=== PATIENT | female | born 1945 | race Caucasian/White ===

== ENCOUNTER 2023-04-13 06:40 | Inpatient (IN) | payer OTHER, SELFPAY ==
[2023-04-13] VITALS (10 sets, daily range): BP systolic 116–159; BP diastolic 63–93; BMI 38.3; BMI 37.3
[2023-04-13 00:39] LABS: % Basophils 0.6 % (0-2); % Eosinophils 1.9 % (0-6); % Immature Granulocytes 0.2 % (0-0.5); % Lymphocytes 22.9 % (20.5-51.1); % Monocytes 12.4 % (1.7-9.3); Absolute Basophils 0.1 10^3/uL (0-0.2); Absolute Eosinophils 0.2 10^3/uL (0-0.7); Absolute Lymphocytes 2.2 10^3/uL (1.2-3.4); Absolute Monocytes 1.2 10^3/uL (0.1-0.6); Absolute Neutrophils 5.9 10^3/uL (1.4-6.5); Hematocrit 35.4 % (37.0-47.0); Mean Corp Hgb Conc. 33.9 g/dL (33.0-37.0); Mean Corpuscular Hgb 32.7 pg (27.0-31.0); Mean Corpuscular Volume 96.5 fL (81.0-99.0); Mean Platelet Volume 9.8 fL (7.4-10.4); Nucleated Red Blood Cells % 0 %; Platelet Count 279 10^3/uL (130-400); Red Blood Cell Count 3.67 10^6/uL (4.20-5.40); Red Cell Dist. Width 13.1 % (11.5-14.5); White Blood Cell Count 9.6 10^3/uL (4.8-10.8)
--- NOTE | 2023-04-13 00:51 | ED.GENMED ---
History of Present Illness
<MARSHALL Hector - Last Filed: 04/13/23 04:50>
General
Chief Complaint: Chest Pain
Source: patient
Exam Limitations: none
Time Seen by Provider: 04/13/23 00:51
Nursing documentation reviewed up to this point in time: agreed with
Travel History
Have you had any contact with someone who has COVID-19?: No
Do you have any symptoms of coronavirus? Fever > 100 degrees, chills, cough, shortness of breath, sore throat, loss of taste or smell, muscle aches, or headache?: No
History of Present Illness
History of Present Illness:
This is a 77 YOF with PMHx of Afib, HTN, HLD, myxoma, spinal stenosis presenting with 7/10 chest tightness and SOB that began around 2300. Pt mentioned she went to bed without complaint around 2130 last night and woke around 2300 with SOB. Pt
mentioned one brief episode SOB 3 days ago in the evening that fully resolved. Pt denied any other past Hx of SOB. Pt mentioned intermittent cough with yellow mucus production. Pt denied fever, chills, chest pain, rhinorrhea, N/V/D/C, MSK weakness,
YU, dizziness, near syncope, vision changes, sensory changes. Pt has Hx of smoking, but has quit for 35 yrs. Pt mentioned taking Percocet BID for spinal stenosis pain. Allergies to PCN, vancomycin.
Past History
<MARSHALL Hector - Last Filed: 04/13/23 04:50>
Past History
ED Past Medical History: Arrthythmia (Paroxysmal atrial fibrillation), Hypercholesterolemia, Hypothyroidism and Other (Crohn's disease colostomy in 1981 with total colectomy, thyroidectomy)
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
Social History
Tobacco: Former smoker (Quit cigarettes in 1988)
Alcohol: None
Drug: None
Personal:
Living: with family
Employment: Retired
Family History
Family History: Other (Noncontributory)
Review of Systems
<MARSHALL Hector - Last Filed: 04/13/23 04:50>
Review of Systems
Allergies reviewed?: Yes
All Other Systems: ROS reviewed and negative except as documented in HPI and ROS
Constitutional: Reports no symptoms
EENT: Reports no symptoms
Respiratory: Reports cough and trouble breathing
Cardiac: Reports no symptoms
ABD/GI: Reports no symptoms
: Reports no symptoms
Musculoskeletal: Reports no symptoms
Skin: Reports no symptoms
Neurological: Reports no symptoms
Hematologic/Lymphatic: Reports no symptoms
Psychiatric: Reports no symptoms
Phy Exam
<MARSHALL Hector - Last Filed: 04/13/23 04:50>
General Physical Exam
General Presentation: mild distress
General age: appears stated age
General Skin: warm and dry
General Habitus: normal
General Mental: alert
General Hydration: appears well hydrated
ENT Exam
ENT Exam: EOMI
Eye Exam
Eye Exam: PERRL and EOMI
Cardiovascular Exam
Cardiovascular Exam: regular rate/rhythm, no edema, no gallop, no JVD, no murmur and normal peripheral pulses
Pulmonary Exam
Pulmonary Exam: lungs clear, no respiratory distress, no rales, no crackles, no rhonchi, no stridor and no wheezing
Cough: productive cough (yellow mucus production)
Gastrointestinal Exam
Gastrointestinal Exam: normal bowel sounds, non tender, soft, no pulsatile mass, non distended and no masses
External Findings: colostomy
Neurological Exam
Neurological Exam: alert, oriented x3, no motor deficits, no sensory deficits and speech normal
Musculoskeletal Exam
Musculoskeletal Exam: neuro vasc intact
Skin Exam
Skin Exam: normal color and warm/dry
Psychiatric Exam
Psychiatric Exam: normal mood/affect
Scores
<MARSHALL Hector - Last Filed: 04/13/23 04:50>
Heart Score for Chest Pain Patients
STEMI patient?: No
History: Moderately Suspicious
ECG: Normal
Age: >/= 65 years
Risk Factors: 1 or 2 Risk Factors
Troponin: </= Normal Limit
Heart Score for Chest Pain Patients: 4
Heart Score Risk: 20.3% MACE over next 6 weeks
Course
<MARSHALL Hector - Last Filed: 04/13/23 04:50>
Orders/Labs/Results
Orders:
Orders
04/13/23 00:17
Electrocardiogram (*1) Urgent
Reason for Study: QTc Monitoring
EKG- Treatment ONCE
04/13/23 00:23
Complete Blood Count/With Diff Urgent
Comprehensive Metabolic Panel Urgent
Troponin I Urgent
04/13/23 01:30
Add On- LAB Urgent
Tests Added?: BNP
04/13/23 01:31
CR Chest - 2 Views Urgent
Comment:
Reason For Exam: cp, sob
04/13/23 01:43
US Abdomen Complete/Upper Urgent
Comment:
Reason For Exam: acute RUQ-epigastric pain
04/13/23 01:44
Mag Hydrox/Al Hydrox/Simeth [Maalox] 30 ml Phenobarb/Hyoscy/Atropine/Scop [] 10 ml Viscous Lidocaine 2% [Xylocaine Viscous Cup] 10 ml PO NOW
Pantoprazole [Protonix IV] 40 mg IV NOW STA
04/13/23 02:07
Mag Hydrox/Al Hydrox/Simeth [Maalox] 30 ml .ROUTE .STK-MED ONE
Phenobarb/Hyoscy/Atropine/Scop [] 10 ml .ROUTE .STK-MED ONE
04/13/23 02:08
Viscous Lidocaine 2% [Xylocaine Viscous Cup] 15 ml .ROUTE .STK-MED ONE
04/13/23 03:03
NT-proBNP Urgent
Comment: ADD ON
Troponin I Urgent
04/13/23 04:11
Add On- LAB Urgent
Tests Added?: lipase
04/13/23 04:31
CefoTEtan [Cefotan] 2,000 mg IV NOW STA
Abnormal Lab Results
04/13/23
00:23
RBC 3.67 L 10^6/uL
(4.20-5.40)
Hct 35.4 L %
(37.0-47.0)
MCH 32.7 H pg
(27.0-31.0)
Absolute Monos (auto) 1.2 H 10^3/uL
(0.1-0.6)
Monocytes % 12.4 H %
(1.7-9.3)
BUN 31 H mg/dl
(7-17)
Alkaline Phosphatase 141 H U/L
(38-126)
04/13/23 00:23
04/13/23 00:23
Vital Signs
Initial and Last Documented VS:
Initial Vital Signs
Temp Pulse Resp BP Pulse Ox
98.2 F 78 17 159/90 96
04/13/23 00:19 04/13/23 00:19 04/13/23 00:19 04/13/23 00:19 04/13/23 00:19
Last Documented Vital Signs
Temp Pulse Resp BP Pulse Ox
98.2 F 77 16 141/93 90
04/13/23 00:19 04/13/23 03:00 04/13/23 03:00 04/13/23 02:16 04/13/23 03:00
<Bri Neves, DO - Last Filed: 04/13/23 04:31>
Orders/Labs/Results
Orders:
Orders
04/13/23 00:17
Electrocardiogram (*1) Urgent
Reason for Study: QTc Monitoring
EKG- Treatment ONCE
04/13/23 00:23
Complete Blood Count/With Diff Urgent
Comprehensive Metabolic Panel Urgent
Troponin I Urgent
04/13/23 01:30
Add On- LAB Urgent
Tests Added?: BNP
04/13/23 01:31
CR Chest - 2 Views Urgent
Comment:
Reason For Exam: cp, sob
04/13/23 01:43
US Abdomen Complete/Upper Urgent
Comment:
Reason For Exam: acute RUQ-epigastric pain
04/13/23 01:44
Mag Hydrox/Al Hydrox/Simeth [Maalox] 30 ml Phenobarb/Hyoscy/Atropine/Scop [] 10 ml Viscous Lidocaine 2% [Xylocaine Viscous Cup] 10 ml PO NOW
Pantoprazole [Protonix IV] 40 mg IV NOW STA
04/13/23 02:07
Mag Hydrox/Al Hydrox/Simeth [Maalox] 30 ml .ROUTE .STK-MED ONE
Phenobarb/Hyoscy/Atropine/Scop [] 10 ml .ROUTE .STK-MED ONE
04/13/23 02:08
Viscous Lidocaine 2% [Xylocaine Viscous Cup] 15 ml .ROUTE .STK-MED ONE
04/13/23 03:03
NT-proBNP Urgent
Comment: ADD ON
Troponin I Urgent
04/13/23 04:11
Add On- LAB Urgent
Tests Added?: lipase
04/13/23 04:31
CefoTEtan [Cefotan] 2,000 mg IV NOW STA
Abnormal Lab Results
04/13/23
00:23
RBC 3.67 L 10^6/uL
(4.20-5.40)
Hct 35.4 L %
(37.0-47.0)
MCH 32.7 H pg
(27.0-31.0)
Absolute Monos (auto) 1.2 H 10^3/uL
(0.1-0.6)
Monocytes % 12.4 H %
(1.7-9.3)
BUN 31 H mg/dl
(7-17)
Alkaline Phosphatase 141 H U/L
(38-126)
04/13/23 00:23
04/13/23 00:23
Vital Signs
Initial and Last Documented VS:
Initial Vital Signs
Temp Pulse Resp BP Pulse Ox
98.2 F 78 17 159/90 96
04/13/23 00:19 04/13/23 00:19 04/13/23 00:19 04/13/23 00:19 04/13/23 00:19
Last Documented Vital Signs
Temp Pulse Resp BP Pulse Ox
98.2 F 77 16 141/93 90
04/13/23 00:19 04/13/23 03:00 04/13/23 03:00 04/13/23 02:16 04/13/23 03:00
<MARSHALL Hector - Last Filed: 04/13/23 04:50>
MDM/Problems Addressed
Differential Diagnosis Includes:
ACS, PE, PNA, COPD exacerbation, CHF exacerbation
MDM/Problems Addressed:
77 YOF presenting with SOB
Chronic conditions affecting care: Arrhythmia (Afib)
Acute Exacerbation and/or Progression of Chronic Illness: Arrhythmia (Afib)
<MARSHALL Hector - Last Filed: 04/13/23 04:50>
*Pulse Oximetry
Patient hypoxic: no
*EKG
Interpreted by ED Provider?: Yes
Interpretation: abnormal
Comparison EKG: changes noted
Rate: normal
Rhythm: atrial flutter
[place]: normal axis
Interval: normal interval
QRS Pattern: normal QRS
Ischemia: no ischemia
*Strapper And Buffer Interpretation
Rate: normal
Interpretation: normal
Rhythm: atrial flutter
*Critical Care Note
Total Time (30-74mins, 75-104mins- exclusive of procedures): Not Applicable
<Bri Neves DO - Last Filed: 04/13/23 04:31>
*Radiology
Radiology exam reviewed: preliminary read by ED provider (Chest x-ray shows soft tissue attenuation left upper breast overlying left lung field. ) and radiology read reviewed
ED Attending Note
<MARSHALL Hector - Last Filed: 04/13/23 04:50>
-
Portions of this chart may have been created with voice recognition software.� Occasional wrong word or��sound alike� substitutions may have occurred due to the inherent limitations of voice recognition software.
<Bri Neves DO - Last Filed: 04/13/23 04:31>
ED Attending Note
Patient seen and examined by attending physician: Yes
I performed the substantive portion of visit, reviewed & personally made and approve the management plan that is documented in note by myself or JATIN.: Yes
I performed a history and physical exam of patient and discussed management with resident, I reviewed resident's note and agree with documented findings and plan of care.: Yes
ED Attending Note:
As above, 77-year-old woman who resides at home with her . History of A-fib chronically maintained on Eliquis and metoprolol. History of hyperlipidemia, hypertension. 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 She
has no prior history of CAD. She does have history of Crohn's disease, colectomy with colostomy.
She presents with right-sided chest tightness that is worse with deep breath that woke her from sleep around 11 PM tonight. Chest tightness is central and right upper chest, worse with deep breath with a sense that she is unable to take a full deep
breath but otherwise denies shortness of breath. She denies palpitations, no dizziness nor lightheadedness, no nausea, no diaphoresis, no cough. She had similar episode of right-sided chest discomfort waking her from sleep 3 nights ago which
resolved within 30 to 60 minutes. Tonight pain has not resolved. She did take 4 chewable aspirin prior to EMS arrival and was given 1 sublingual nitroglycerin prehospital without improvement in pain.
GENERAL: 77-year-old woman appears her stated age, bright and alert, pleasant, appears in no acute distress. is accompanying.
EYE: anicteric
NECK: Supple, nontender, no meningismus, no significant adenopathy.
ENT: oral mucosa is moist. No rhinorrhea.
CARDIAC: Regular rate and rhythm. no murmur.
LUNGS: Clear breath sounds bilaterally, no acute respiratory distress, no wheezes/rales/rhonchi
ABDOMEN: Soft, nondistended, mild to moderate tenderness right upper quadrant right anterior distal costal margin. No r/g, no cvat. normoactive BS.
NEUROLOGICAL: Alert and oriented x3, no focal neuro deficits.
SKIN: Warm and dry, normal color, skin intact. No rash.
MUSCULOSKELETAL: No C/C/E. peripheral pulses are full and equal b/l. No palpable tenderness.
PSYCH: Normal and appropriate interaction.
Concern for ACS, pneumonia, GERD, cholecystitis, CHF.
EKG shows atrial flutter with controlled ventricular response. No acute ST-T wave abnormalities.
Labs thus far are unremarkable save for mildly elevated alkaline phosphatase at 141. LFTs are otherwise within normal limits. Troponin is negative.
Will check BNP, chest x-ray and due to right upper quadrant tenderness to palpation will check abdominal ultrasound.
Will plan to repeat troponin at 230 this morning.
Will trial GI cocktail and IV Protonix for potential GERD.
04/13/2023 0414 AM
Repeat troponin is again negative.
Chest x-ray shows soft tissue attenuation over left chest field consistent with soft tissue attenuation of left breast.
Ultrasound shows common bile duct dilated up to 13 mm with choledocholithiasis. Contracted gallbladder containing small granular gallstones in its neck. No gallbladder wall thickening nor pericholecystic fluid. No intrahepatic ductal dilatation.
Patient is now pain-free and comfortable but I suspect her right-sided chest pain is related to biliary colic and although T. bili within normal limits, with dilated common bile duct there is significant concern for early common bile duct
obstruction.
BNP is pending but there is no evidence of CHF on chest x-ray.
Will add lipase to blood in lab.
Will initiate IV antibiotics for potential cholecystitis and admit to hospitalist service.
Discharge Plan
Departure
Patient Disposition: Admit
Date of Disposition: 04/13/23
Time of Disposition: 04:14
Admit to: Med/Surg
Admit to doctor: Brodie
Presentation/result/management discussed w/ accepting MD/DO: Hospitalist
Discharge Problem:
Choledocholithiasis with acute cholecystitis
Prescriptions:
No Action
levothyroxine 150 MCG tablet
150 mcg PO DAILY
multivitamin [Multi-Day] 1 EACH tablet
1 tab PO DAILY
aspirin 81 MG tablet,delayed release (DR/EC)
81 mg PO DAILY
fluticasone propionate 1 SPRAY spray,suspension
1 spray SPRAY DAILY
atorvastatin 10 MG tablet
10 mg PO HS Qty: 30 3RF
cetirizine 10 MG tablet
10 mg PO DAILY
famotidine 20 MG tablet
20 mg PO Daily
apixaban [Eliquis] 5 MG tablet
5 mg PO BID Qty: 60 0RF
metoprolol succinate 25 MG tablet extended release 24 hr
25 mg PO DAILY Qty: 30 1RF
promethazine-DM 473 ML syrup
5 - 10 ml PO QIDPRN PRN (Reason: cough) Qty: 473 0RF
tramadol 50 MG tablet
50 mg PO TIDPRN PRN (Reason: pain) Qty: 12 0RF
Referrals:
Jairo Lopez MD [Family Provider] -
Interventions
Interventions:
*Risk Screen - Suicide Last Done: 04/13/23 00:36
*General Assessment Last Done: 04/13/23 00:36
*Neglect/Abuse Screening Last Done: 04/13/23 00:36
ED- Fall Risk Assessment Last Done: 04/13/23 00:30
*ED COVID-19 Vaccine History Last Done: 04/13/23 03:04
ED- Cardiac Assessment Last Done: 04/13/23 00:30
[2023-04-13 00:53] LABS: ALT (SGPT) 19 U/L (0-35); AST (SGOT) 23 U/L (14-36); Albumin 3.9 g/dl (3.5-5.0); Alkaline Phosphatase 141 U/L (38-126); Blood Urea Nitrogen 31 mg/dl (7-17); Calcium 8.8 mg/dl (8.4-10.2); Carbon Dioxide 24 mmol/L (22-30); Estimated Creatinine Clearance 65 ml/min; Glucose 96 mg/dl (70-99); Total Bilirubin 0.6 mg/dl (0.2-1.3); Total Protein 6.3 g/dl (6.3-8.2); eGFR > 60.00
[2023-04-13 01:02] LABS: Chloride 106 mmol/L (98-107); Potassium 4.4 mmol/L (3.5-5.1); Sodium 136 mmol/L (135-145)
[2023-04-13 01:04] LABS: Troponin I < 0.012 ng/ml
[2023-04-13] MEDS: PROTONIX IV 40 MG IV (02:10)
[2023-04-13] MEDS: MAALOX 50 PO (02:10)
[2023-04-13 03:39] LABS: Troponin I < 0.012 ng/ml
[2023-04-13 04:15] LABS: NT-proBNP 818 pg/ml
[2023-04-13] MEDS: CEFOTAN 2000 MG IV (04:48)
[2023-04-13 05:18] LABS: Lipase 101 U/L (23-300)
--- NOTE | 2023-04-13 06:32 | HPS.HSE ---
Family Physician
-
Family Physician: Jairo Lopez
Chief Complaint
-
SOB
History of Present Illness
Patient is a 77y F with PMH significant for Crohn's disease s/p total colectomy, paroxysmal A-Fib and breast cancer who presents to ED complaining of SOB. Patient states that she has had brief episodes of chest heaviness, SOB and inability to
take in a deep breath off-and-on over the past few weeks. Episodes have typically occurred at night while turning in bed or similar and have typically lasted only seconds before resolving.
This evening, patient developed similar symptoms that were much more intense and did not resolve. She denies any pain - either in the chest, abdomen or the back. She had no N/V at home, but does complain of some mild nausea here in the ED.
Patient denies any issues with appetite, changes in bowels, etc. No fevers / chills.
No recent changes to medications, diet, etc.
Medical History
Past Medical History
Past Medical History: Reports Other
Additional Past Medical History:
Paroxysmal Atrial Fibrillation
Left Atrial Myxoma
Hypertension
Crohn's Disease
Breast Cancer (lumpectomy and XRT)
Hypothyroidism
Obesity
Past Surgical History: Reports Other
Additional Past Surgical History:
Total Colectomy / End Colostomy
Parastomal Hernia / Repair with Mesh (x 2)
Atrial Myxoma Resection
Thyroidectomy
Lumpectomy
Social History
Tobacco: Former Smoker (Quit smoking 35y ago. Approx 20 pack years total use.)
Alcohol: Occasional (Rarely.)
Drug: None
Personal:
Living: With Family
Family History
Family History: Other (Multiple female family members with breast cancer.)
Allergies / Home Medications
Allergies reflects when Allergies were last updated in [employer].
Home Medications with original date entered in [employer]
Allergy/Medication List:
Allergies
Allergy/AdvReac Type Severity Reaction Status Date / Time
Penicillins Allergy Intermediate Rash Verified 10/12/19 02:55
vancomycin Allergy Unknown Verified 10/12/19 02:55
Home Medications
levothyroxine 150 mcg tablet 150 mcg PO DAILY 08/07/15
fluticasone propionate 50 mcg/actuation nasal spray,suspension 1 spray SPRAY DAILY 08/26/15
multivitamin (Multi-Day tablet) 1 tab PO DAILY 08/26/15
atorvastatin 10 mg tablet 10 mg PO HS ##30 09/07/15
apixaban 5 mg tablet (Eliquis) 5 mg PO BID #60 tabs 03/03/18
anastrozole 1 mg tablet 1 mg PO DAILY 04/13/23
celecoxib 200 mg capsule 200 mg PO BID 04/13/23
esomeprazole magnesium 20 mg capsule,delayed release 20 mg PO BID 04/13/23
levocetirizine 5 mg tablet (Xyzal) 5 mg PO DAILY 04/13/23
metoprolol succinate 25 mg tablet,extended release 24 hr 25 mg PO HS 04/13/23
metoprolol succinate 25 mg tablet,extended release 24 hr 50 mg PO DAILY 04/13/23
Review of Systems
-
History Source: Patient
A 12 point ROS was completed and negative except as noted: Yes
Constitutional: Denies Fever, Fatigue or Chills
EENT: Denies Sore Throat
Respiratory: Reports Trouble Breathing; Denies Cough or Hemoptysis
Cardiac: Denies Chest Pain, Diaphoresis, Palpitations or Syncope
Abdomen/GI: Reports Nausea; Denies Abdominal Pain, Vomiting, Diarrhea or Constipated
: Denies Dysuria, Frequency or Flank Pain
Musculoskeletal: Denies Joint Pain or Edema
Neurological: Denies Dizzy or Headache
Psych: Reports Anxiety
Physical Exam
Vital Signs
Vital Signs
Temp Pulse Resp BP Pulse Ox
98.2 F 77 15 116/63 92
04/13/23 00:19 04/13/23 05:00 04/13/23 05:00 04/13/23 03:00 04/13/23 05:00
Physical Exam
General: Other (77y F in no acute distress.)
HEENT: Moist mucous membranes and PERRLA
Respiratory: Clear; No Wheezes, Rales or Rhonchi
Cardiac: S1/S2, Irregular Rhythm and Murmur (II/ GRABIEL)
GI: Soft, Non Distended, Normal Bowel Sounds and Other (Obese, pos tenderness in the RUQ.)
Musculoskeletal: No Clubbing, No Cyanosis and No Edema
Neuro: AO x 3
Laboratory Results
-
04/13/23 00:23
04/13/23 00:23
Laboratory Results
Total Bilirubin 0.6 mg/dl (0.2-1.3) 04/13/23 00:23
AST 23 U/L (14-36) 04/13/23 00:23
ALT 19 U/L (0-35) 04/13/23 00:23
Alkaline Phosphatase 141 U/L (38-126) H 04/13/23 00:23
Troponin I < 0.012 ng/ml 04/13/23 03:03
Lipase 101 U/L (23-300) 04/13/23 00:23
Impression/Plan
-
A/P: Patient is a 77y F with PMH significant for multiple prior abdominal surgeries, end ileostomy, A-Fib and HTN who presents to ED complaining of SOB.
Choledocholithiasis
- Admit for further evaluation and treatment.
- Though patient denies pain - her symptom of inability to take deep breath is likely due to the above.
- NPO, IVFs support, pain control and antiemetics.
- GI and Surgery evaluations.
- ? MRCP v ERCP.
- Patient states that she would require sedation in order to complete MRI / MRCP.
- No evidence of acute cholecystitis / cholangitis.
- Follow for any new / recurrent symptoms.
Paroxysmal Atrial Fibrillation
- Stable. In controlled A-Fib at present.
- Continue metoprolol.
- Hold Eliquis for now pending possible intervention.
- Last dose of Eliquis was 04/12 PM.
Hypothyroidism
- Stable. Continue T4 supplementation.
Crohn's Disease
- s/p total colectomy / end-ileostomy in her youth.
- Two parastomal hernias in the past requiring surgery / hernia repair(s) with mesh.
- Stoma functioning well.
Breast Cancer
- s/p lumpectomy and XRT.
- Continue anastrazole daily.
Obesity due to excess calories
- Affects all aspects of care.
- Encourage healthy diet / activity with goal of weight loss.
DVT Prophylaxis: SCDs
Code Status: Full
[2023-04-13] MEDS: TOPROL XL 50 MG PO (07:58)
[2023-04-13] MEDS: LR 1000 IV ×2 (07:58→22:07)
[2023-04-13] MEDS: ARIMIDEX 1 MG PO (08:19)
[2023-04-13] MEDS: SYNTHROID PO (08:29)
[2023-04-13 09:10] LABS: TSH Reflex To Free T4 0.51 uIU/ml (0.47-4.68)
--- NOTE | 2023-04-13 10:14 | CON.GS ---
Medical History
-
Chief Complaint: Upper abdominal pressure and SOB
History of Present Illness:
Patient is a 77 yo F with a PMH notable for obesity, GERD, HTN, pA-fib (on Eliquis, LD 04/12), LEFT atrial myxoma s/p resection by Dr. Giron in 2015, s/p total thyroidectomy c/b hypothyroidism, breast cancer s/p partial mastectomy and XRT, Crohn's
s/p proctectomy with colostomy c/b parastomal hernia s/p primary repair in 07/2015 c/b recurrence and s/p laparoscopic [place] repair with 10 x 15 [place] DualMesh in 12/[address] Brenner. She presents with intermittent upper abdominal pressure
and SOB over the past 2 weeks. Symptoms have occurred every few days and primarily occur at night. Symptoms last seconds before self resolving. Yesterday evening she had a severe episode prompting presentation to the ED. No nausea or vomiting.
She denies any jaundice, pale stools, articulate urine. No fevers or chills.
Past Medical History
Past Medical History: Arrhythmias (Afib (on Eliquis)), Cancer (Breast, L atrial myxoma), GERD, HTN, Hypercholesterolemia, Hypothyroidism and Other (Crohn's)
Past Surgical History: Bowel Resection (Open proctectomy with end colostomy c/b parastomal hernia), Cardiac (Excision of LEFT atrial mass) and Hernia Repair (Open primary parastomal hernia repair in 07/2015 c/b recurrence s/p laparoscopic repair with
mesh in 12/2015)
Social History
Tobacco: Non-Smoker
Alcohol: None
Drug: None
Personal:
Living: With Family
Family History
Family History: Reviewed & Noncontributory
Allergies / Home Medications
Allergy/AdvReac Type Severity Reaction Status Date / Time
Penicillins Allergy Rash Verified 04/13/23 07:08
vancomycin Allergy Unknown Verified 10/12/19 02:55
Medication Instructions Recorded Confirmed Type
levothyroxine 150 mcg tablet 150 mcg PO DAILY 08/07/15 04/13/23 History
fluticasone propionate 50 1 spray SPRAY DAILY 08/26/15 04/13/23 History
mcg/actuation nasal
spray,suspension
multivitamin (Multi-Day tablet) 1 tab PO DAILY 08/26/15 04/13/23 History
atorvastatin 10 mg tablet 10 mg PO HS ##30 09/07/15 04/13/23 Rx
apixaban 5 mg tablet (Eliquis) 5 mg PO BID #60 tabs 03/03/18 04/13/23 Rx
anastrozole 1 mg tablet 1 mg PO DAILY 04/13/23 04/13/23 History
celecoxib 200 mg capsule 200 mg PO BID 04/13/23 04/13/23 History
esomeprazole magnesium 20 mg 20 mg PO BID 04/13/23 04/13/23 History
capsule,delayed release
levocetirizine 5 mg tablet (Xyzal) 5 mg PO DAILY 04/13/23 04/13/23 History
metoprolol succinate 25 mg 25 mg PO HS 04/13/23 04/13/23 History
tablet,extended release 24 hr
metoprolol succinate 25 mg 50 mg PO DAILY 04/13/23 04/13/23 History
tablet,extended release 24 hr
Review of Systems
-
A 10 point review of systems was completed, and was negative except as per HPI.
Physical Exam
Vital Signs
Temp Pulse Resp BP Pulse Ox
98.2 F 78 17 150/82 96
04/13/23 00:19 04/13/23 05:28 04/13/23 05:28 04/13/23 08:17 04/13/23 08:17
04/12/23 04/13/23 04/14/23
06:59 06:59 06:59
Actual Weight 98 kg
Body Mass Index (BMI) 38.3
Lab Results
04/13/23 00:23
04/13/23 00:23
WBC 9.6 10^3/uL (4.8-10.8) 04/13/23 00:
Hgb 12.0 g/dL (12.0-16.0) 04/13/23:
Hct 35.4 % (37.0-47.0) L 04/13/23:23
Plt Count 279 10^3/uL (130-400) 04/13/23:
Abs Immat Gran (auto) 0.0 10^3/uL (0-0.05) 04/13/23:
Neutrophils % 62.0 % (42.2-75.2) 04/13/23:
Physical Exam
General: Well Developed, Well Nourished and No Apparent Distress
HEENT: Normocephalic and Anicteric
Respiratory: Non Labored Respirations
Cardiac: Irregular Rhythm
GI: Soft, Non Tender, Non Distended, Incisions (Well healed), Obese and Other (Colostomy PPV, no palpable hernia)
Musculoskeletal: No Edema
Skin: Warm and Dry
Neuro: Nonfocal/Grossly Intact
Data Reviewed
-
Ultrasound: Image Personally Visualized and interpreted
Labs: Labs Reviewed by me
Old Records: Reviewed
Assessment / Plan
-
Patient is a 77 yo F p/w biliary colic versus choledocholithiasis based on US findings (final read pending).
The natural history and pathophysiology of biliary and stone disease was briefly discussed. Anatomy was reviewed. Workup thus far was reviewed. Final read on US pending. GI consult noted and pending. Further workup with MRI versus EUS/ERCP per
GI. Not an operative candidate for cholecystectomy today given recent Eliquis use and above-noted pending workup. Will continue to follow along. Timing of cholecystectomy TBD.
-- Timing of cholecystectomy TBD
-- Hold Eliquis
-- GI consult noted, diet per GI at this time
-- Will continue to follow
--- NOTE | 2023-04-13 10:15 | CON.GI ---
Addendum entered and electronically signed by Alyssa Ma MD 04/13/23 20:11:
I saw and examined the patient.
The BAB[employer]ER or PA's note was reviewed and I agree with the note.
Comment: 77-year-old female with history of Crohn's disease of ? Large bowel status post total colectomy, history of incarcerated parastomal hernia and repair, breast cancer status postlumpectomy and radiation, A-fib on Eliquis presenting with
tightness in the right chest that woke her up from sleep early this morning and sensation of not able to breathe. Some nausea during the episode but not since. Came to the emergency room, noted to have elevated alkaline phosphatase and abdominal
ultrasound showing possible choledocholithiasis with dilated bile duct and mild dilation of the pancreatic duct. Currently no tightness or pain. History of chronic reflux on Nexium. No constipation or diarrhea, empties colostomy bag once a day.
No blood in the stool or black stool. No unintentional weight loss or NSAID use.
Last Eliquis dose 04/12/2023 in the evening.
-Right-sided chest tightness with elevated alkaline phosphatase and ultrasound showing choledocholithiasis
Given mild dilation of the pancreatic duct and dilated bile duct, ideally MRCP indicated but patient is very claustrophobic and does not want to try MRI even with tranquilizers.
Will discuss with Dr. Garcia for any availability for EUS/ERCP after Eliquis washout. Other option is doing ERCP and getting CT scan of the abdomen and pelvis to evaluate the pancreas and the pancreatic duct.
Okay for clear liquid diet for now.
Will follow-up
Eventual cholecystectomy
Original Note:
Consultation
-
Date/Time Consultation Requested: 04/13/23 @ 06:42
Date/Time Consultation Performed: 04/13/23 @ 10:30
Requesting Provider: Dr. Calloway
Performing Provider: SARAI Escobedo; Dr. Ma
Reason for Consultation: choledocholithiasis
Medical History
Chief Complaint / HPI
Chief Complaint: shortness of breath
History of Present Illness:
The patient is a 77-year-old female with a past medical history significant for Crohn's disease status post total colectomy off medications, paroxysmal atrial fibrillation on Eliquis, history of breast cancer status postlumpectomy and radiation,
atrial myxoma with resection, history of incarcerated parastomal hernia with repair x 2, hypertension, hypothyroidism, who presented to the emergency with complaint of shortness of breath. We are being asked to evaluate for choledocholithiasis.
The patient reports several weeks ago had an episode of chest pressure and shortness of breath. This lasted about 5 to 10 minutes but then did resolve on its own. She did not think anything of this at that time but last evening around 11 PM she
awoke from sleep with a pressure in her chest area. She also felt as though it was difficult to take a deep breath and felt that her breathing was somewhat labored. She was going to sit up on the couch but due to her concerning symptoms she
notified her who brought her to the emergency room for further evaluation. She reports some transient right-sided abdominal pain but overall no significant pain. She denies any changes to her ostomy output or signs of bleeding. She denies
any nausea, vomiting, fevers, or chills. She denies any prior history of liver or gallbladder problems. She denies any history of alcohol use. She denies NSAID use. Her last dose of Eliquis was yesterday evening (04/12). She denies any family
history of colon cancer or other GI cancers or disorders. Her last colonoscopy was done [address] Cantu via her ostomy which showed no concerning findings. Routine labs in the ER showed no significant findings aside from a mildly elevated
alk phos 141, BUN 31. A wet read of abdominal ultrasound imaging per ER records reported 13 mm CBD distention with choledocholithiasis. Official read pending at this time. She was made n.p.o. and admitted for further evaluation by GI and general
surgery. Her Eliquis was placed on hold.
Past Medical History
Past Medical History: Arrhythmias (Paroxysmal atrial fibrillation on Eliquis), Cancer (Breast cancer status postlumpectomy and radiation), HTN, Hypothyroidism and Other (Crohn's disease status post colectomy, history of incarcerated parastomal
hernia with repair x 2, atrial myxoma with resection)
Past Surgical History: Other (As above)
Social History
Tobacco: Non-Smoker
Alcohol: None
Drug: None
Personal:
Living: With Family
Family History
Family History: Cancer (breast cancer)
Allergies / Home Medications
Allergy/AdvReac Type Severity Reaction Status Date / Time
Penicillins Allergy Rash Verified 04/13/23 07:08
vancomycin Allergy Unknown Verified 10/12/19 02:55
Medication Instructions Recorded
levothyroxine 150 mcg tablet 150 mcg PO DAILY 08/07/15
fluticasone propionate 50 1 spray SPRAY DAILY 08/26/15
mcg/actuation nasal
spray,suspension
multivitamin (Multi-Day tablet) 1 tab PO DAILY 08/26/15
atorvastatin 10 mg tablet 10 mg PO HS ##30 09/07/15
apixaban 5 mg tablet (Eliquis) 5 mg PO BID #60 tabs 03/03/18
anastrozole 1 mg tablet 1 mg PO DAILY 04/13/23
celecoxib 200 mg capsule 200 mg PO BID 04/13/23
esomeprazole magnesium 20 mg 20 mg PO BID 04/13/23
capsule,delayed release
levocetirizine 5 mg tablet (Xyzal) 5 mg PO DAILY 04/13/23
metoprolol succinate 25 mg 25 mg PO HS 04/13/23
tablet,extended release 24 hr
metoprolol succinate 25 mg 50 mg PO DAILY 04/13/23
tablet,extended release 24 hr
Review of Systems
-
History Source: Patient
Constitutional: Reports No Symptoms
EENT: Reports No Symptoms
Respiratory: Reports Trouble Breathing
Cardiac: Reports Chest Pain
Abdomen/GI: Reports Abdominal Pain
: Reports No Symptoms
Musculoskeletal: Reports No Symptoms
Skin: Reports No Symptoms
Neurological: Reports No Symptoms
Vital Signs
Temp Pulse Resp BP Pulse Ox
98.2 F 78 17 150/82 96
04/13/23 00:19 04/13/23 05:28 04/13/23 05:28 04/13/23 08:17 04/13/23 08:17
Physical Exam
Exam
General: Well Developed, Well Nourished, No Apparent Distress and Comfortable
HEENT: Normocephalic, Anicteric and Atraumatic
Respiratory: Clear
Cardiac: S1/S2 and Irregular Rhythm
Breast: Deferred by me
GI: Soft, Non Tender, Non Distended and Normal Bowel Sounds
Musculoskeletal: No Edema
Skin: Warm and Dry
Neuro: Awake, Alert and Oriented
Psych: Calm
Results
WBC 9.6 10^3/uL (4.8-10.8) 04/13/23 00:23
Hgb 12.0 g/dL (12.0-16.0) 04/13/23 00:23
Hct 35.4 % (37.0-47.0) L 04/13/23 00:23
MCV 96.5 fL (81.0-99.0) 04/13/23 00:23
Plt Count 279 10^3/uL (130-400) 04/13/23 00:23
Absolute Neuts (auto) 5.9 10^3/uL (1.4-6.5) 04/13/23 00:23
Sodium 136 mmol/L (135-145) 04/13/23 00:23
Potassium 4.4 mmol/L (3.5-5.1) 04/13/23 00:23
Chloride 106 mmol/L (98-107) 04/13/23 00:23
Carbon Dioxide 24 mmol/L (22-30) 04/13/23 00:23
BUN 31 mg/dl (7-17) H 04/13/23 00:23
Creatinine 0.8 mg/dL (0.6-1.0) 04/13/23 00:23
Calcium 8.8 mg/dl (8.4-10.2) 04/13/23 00:23
Total Bilirubin 0.6 mg/dl (0.2-1.3) 04/13/23 00:23
AST 23 U/L (14-36) 04/13/23 00:23
ALT 19 U/L (0-35) 04/13/23 00:23
Alkaline Phosphatase 141 U/L (38-126) H 04/13/23 00:23
Lipase 101 U/L (23-300) 04/13/23 00:23
Diagnostic Image Results:
04/13/23 US abdomen: 'IMPRESSION: Cholelithiasis and findings as above most likely representing choledocholithiasis. Mild dilation of pancreatic duct and dilation of the common bile duct which may also be related to choledocholithiasis, distal ductal
stone not identified at sonography. Findings could be further evaluated with follow-up MRCP.'
Prior GI Procedures:
EGD: none on record
Colonoscopy: 2018 , Dr. Cantu: �Normal mucosa in the sigmoid colon, in the descending colon, in the transverse colon, in the ascending colon and in the cecum. Several biopsies were obtained in the entire colon. The examined portion of the ileum
was normal. Biopsied. path unrevealing.
Assessment / Plan
-
The patient is a 77-year-old female with a past medical history significant for Crohn's disease status post total colectomy off medications, paroxysmal atrial fibrillation on Eliquis, history of breast cancer status postlumpectomy and radiation,
atrial myxoma with resection, history of incarcerated parastomal hernia with repair x 2, hypertension, hypothyroidism, who presented to the emergency with complaint of shortness of breath. We are being asked to evaluate for choledocholithiasis.
The patient admits to episodic chest pressure and shortness of breath throughout the last few weeks. Symptoms worsening yesterday evening that did not resolve therefore prompting ER evaluation. Ultrasound imaging showing up to 13 mm dilation of
the common bile duct with mild dilation of the main pancreatic duct of 4 mm, with findings likely representing choledocholithiasis. LFTs essentially normal aside from mildly elevated alk phos. No fevers or leukocytosis. No significant pain
currently.
Problem list:
-Chest pressure/shortness of breath, improved
-choledocholithiasis, US showing dilated CBD 13mm, mild pancreatic ductal dilation 4 mm
-Elevated alkaline phos
-History of Crohn's disease status post left hemicolectomy with left lower quadrant ostomy
-History of breast cancer status postlumpectomy and radiation
-Atrial fibrillation on Eliquis
-History of incarcerated parastomal hernia with repair x 2
Other pertinent medical history:
-Hypertension
-Hyperlipidemia
-Atrial myxoma with resection
Recommendations:
-Etiology of presenting symptoms likely secondary to choledocholithiasis evident on ultrasound imaging versus less likely cardiac etiology versus other.
---Ultrasound imaging as above. No signs of cholangitis
-Discussed with Dr. Ma, no need for MRCP at this time with ultrasound confirming choledocholithiasis.
-She will need eventual ERCP after Eliquis washout. To discuss timing with Dr. Garcia/Dr. Ma.
-Surgery following for eventual cholecystectomy
-Okay for clear liquid diet today
-Continue to hold Eliquis
-Monitor LFTs
-Consider eventual MRI imaging with hx breast CA pending ERCP findings.
-Will follow
-
-
Thank you for consultation and allowing me to participate in the patient's care. Please call the wallpaper consultant GI physician during the after hours with any questions or concerns.
[2023-04-13] MEDS: ZOFRAN 4 MG IV ×2 (11:41→18:02)
[2023-04-13] MEDS: TYLENOL 650 MG PO ×3 (13:55→22:07)
--- NOTE | 2023-04-13 14:18 | W.PN.UPDATE ---
Update Note
Progress Note Update
This note supplemental to history and physical noted earlier today. Follow-up surgery and GI recommendations. Holding Eliquis. Timing of cholecystectomy to be decided; okay for clear liquid diet today, ERCP as per GI.
[2023-04-13 17:23] LABS: Hepatitis C Antibody Negative (Negative)
[2023-04-13] MEDS: TOPROL XL 25 MG PO (20:59)
[2023-04-14] MEDS: SYNTHROID 150 MCG PO (05:30)
[2023-04-14] MEDS: TOPROL XL 50 MG PO (08:01)
[2023-04-14] MEDS: NSS (PRESERVATIVE FREE) 10 ML IV (08:01)
[2023-04-14] MEDS: ARIMIDEX 1 MG PO (08:01)
[2023-04-14] MEDS: PROTONIX IV 40 MG IV (08:02)
[2023-04-14 08:03] LABS: Hematocrit 37.9 % (37.0-47.0); Hemoglobin 12.7 g/dL (12.0-16.0); Mean Corp Hgb Conc. 33.5 g/dL (33.0-37.0); Mean Corpuscular Hgb 32.8 pg (27.0-31.0); Mean Corpuscular Volume 97.9 fL (81.0-99.0); Mean Platelet Volume 10.3 fL (7.4-10.4); Platelet Count 252 10^3/uL (130-400); Red Blood Cell Count 3.87 10^6/uL (4.20-5.40); Red Cell Dist. Width 13.1 % (11.5-14.5); White Blood Cell Count 5.7 10^3/uL (4.8-10.8)
[2023-04-14 08:31] VITALS: BP 168/71
[2023-04-14 08:57] LABS: ALT (SGPT) 19 U/L (0-35); AST (SGOT) 24 U/L (14-36); Albumin 3.5 g/dl (3.5-5.0); Alkaline Phosphatase 127 U/L (38-126); Blood Urea Nitrogen 12 mg/dl (7-17); Calcium 8.9 mg/dl (8.4-10.2); Carbon Dioxide 24 mmol/L (22-30); Chloride 103 mmol/L (98-107); Direct Bilirubin 0.4 mg/dl (0.0-0.4); Estimated Creatinine Clearance 85 ml/min; Glucose 92 mg/dl (70-99); Potassium 4.5 mmol/L (3.5-5.1); Sodium 136 mmol/L (135-145); Total Bilirubin 0.9 mg/dl (0.2-1.3); Total Protein 5.8 g/dl (6.3-8.2); eGFR > 60.00
[2023-04-14] MEDS: TYLENOL 650 MG PO ×3 (09:25→21:17)
[2023-04-14] MEDS: LR 1000 IV (11:38)
--- NOTE | 2023-04-14 11:45 | W.PN.UPDATE ---
Update Note
Progress Note Update
Pt currently awaiting ERCP with GI after eliquis washout. Tentatively planned for tomorrow 04/15/23. GS will follow peripherally and evaluate post-procedure with a view toward CCY, timing TBD.
[2023-04-14] MEDS: ZOFRAN 4 MG IV (12:31)
--- NOTE | 2023-04-14 13:44 | W.PN.HOSP.TC ---
Today's Communication/Plan
-
CLD
NPO at [place] for ERCP
Assessment / Plan
Assessment / Plan
Physical Exam
General: Other (77y F in no acute distress.)
HEENT: Moist mucous membranes and PERRLA
Respiratory: Clear; No Wheezes, Rales or Rhonchi
Cardiac: S1/S2, Irregular Rhythm and Murmur (II/ GRABIEL)
GI: Soft, Non Distended, Normal Bowel Sounds and Other (Obese)
Musculoskeletal: No Clubbing, No Cyanosis and No Edema
Neuro: AO x 3
A/P:� Patient is a 77y F with PMH significant for multiple prior abdominal surgeries, end ileostomy, A-Fib and HTN who presents to ED complaining of SOB.
Choledocholithiasis
�- Admit for further evaluation and treatment.
�- Though patient denies pain - her symptom of inability to take deep breath is likely due to the above.
�- CLD, IVF
�- GI and Surgery evaluations.
�- ERCP tomorrow, NPO at [place]
�-Eventual cholecystectomy post ERCP
Paroxysmal Atrial Fibrillation
�- Stable.� In controlled A-Fib at present.
�- Continue metoprolol.
�- Hold Eliquis for now pending possible intervention.
�- Last dose of Eliquis was 04/12 PM.
Hypothyroidism
�- Stable.� Continue T4 supplementation.
Crohn's Disease
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
�- Two parastomal hernias in the past requiring surgery / hernia repair(s) with mesh.
�- Stoma functioning well.
Breast Cancer
�- s/p lumpectomy and XRT.
�- Continue anastrazole daily.
Obesity due to excess calories
�- Affects all aspects of care.
�- Encourage healthy diet / activity with goal of weight loss.
DVT Prophylaxis:� SCDs
Code Status:� Full
Anticipated Discharge: > 48 hours
Subjective/Interval History
-
Date of Service: April 14, 2023
Able to breathe more adequately with deeper breaths today
Objective Data
-
Labs:
Laboratory Results
04/14/23
07:14
WBC 5.7
Hgb 12.7
Hct 37.9
Plt Count 252
Sodium 136
Potassium 4.5
Chloride 103
Carbon Dioxide 24
BUN 12
Creatinine 0.5 L
Glucose 92
Calcium 8.9
Total Bilirubin 0.9
AST 24
ALT 19
Alkaline Phosphatase 127 H
Vital Signs:
Vital Signs
Temp Pulse Resp BP Pulse Ox
98.4 F 77 20 168/71 98
04/14/23 08:31 04/14/23 08:31 04/14/23 08:31 04/14/23 08:31 04/14/23 08:31
I&O
04/13/23 04/14/23 04/15/23
06:59 06:59 06:59
Intake Total 1440 / 1440
Balance 1440 / 1440
Review of Systems
-
History Source: Patient
All other systems: Not reviewed unless documented
Data Reviewed
-
Diagnostic Radiology: Report Reviewed by me
Ultrasound: Image personally visualized and interpreted and Report Reviewed by me
Labs: Labs Reviewed by me
--- NOTE | 2023-04-14 15:17 | W.PN.GI.CBS2 ---
Addendum entered and electronically signed by Alyssa Ma MD 04/14/23 18:59:
I saw and examined the patient.
The MANAGER DEVELOPMENT or PA's note was reviewed and I agree with the note.
Comment: Patient reports no abdominal pain.
For EUS/ERCP tomorrow after Eliquis washout.
Eventual cholecystectomy
Will follow
Original Note:
Today's Communication / Plan
-
-Etiology of presenting symptoms likely secondary to choledocholithiasis evident on ultrasound imaging versus less likely cardiac etiology with neg troponin versus other.
remains afebrile with normal WBC's
tentative plan for EUS/ERCP 04/15
last Eliquis 04/12 PM
-Surgery following for eventual cholecystectomy
-Okay will allow full liquid dinner then NPO in AM
-Continue to hold Eliquis
-Monitor LFTs remains normal
Assessment / Plan
-
The patient is a 77-year-old female with a past medical history significant for Crohn's disease status post total colectomy off medications, paroxysmal atrial fibrillation on Eliquis, history of breast cancer status postlumpectomy and radiation,
atrial myxoma with resection, history of incarcerated parastomal hernia with repair x 2, hypertension, hypothyroidism, who presented to the emergency with complaint of shortness of breath. We are being asked to evaluate for choledocholithiasis.
The patient admits to episodic chest pressure and shortness of breath throughout the last few weeks with worsening symptoms prior to admission. Ultrasound imaging showing up to 13 mm dilation of the common bile duct with mild dilation of the main
pancreatic duct of 4 mm, with findings likely representing choledocholithiasis. LFTs essentially normal aside from mildly elevated alk phos. No fevers or leukocytosis. No significant pain currently.
Problem list:
-Chest pressure/shortness of breath, improved
-choledocholithiasis, US showing dilated CBD 13mm, mild pancreatic ductal dilation 4 mm
-Elevated alkaline phos
-History of Crohn's disease status post left hemicolectomy with left lower quadrant ostomy
-History of breast cancer status postlumpectomy and radiation
-Atrial fibrillation on Eliquis
-History of incarcerated parastomal hernia with repair x 2
Other pertinent medical history:
-Hypertension
-Hyperlipidemia
-Atrial myxoma with resection
Recommendations:
-Etiology of presenting symptoms likely secondary to choledocholithiasis evident on ultrasound imaging versus less likely cardiac etiology with neg troponin versus other.
remains afebrile with normal WBC's
tentative plan for EUS/ERCP 04/15
last Eliquis 04/12 PM
-Surgery following for eventual cholecystectomy
-Okay will allow full liquid dinner then NPO in AM
-Continue to hold Eliquis
-Monitor LFTs remains normal
Subjective
Subjective
Date of Service: April 14, 2023
clear diet no stools no further abdominal pain
Objective
Data Reviewed
Laboratory Data:
Laboratory Results
04/14/23 07:14
04/14/23 07:14
Laboratory Results
Total Bilirubin 0.9 mg/dl (0.2-1.3) 04/14/23 07:14
AST 24 U/L (14-36) 04/14/23 07:14
ALT 19 U/L (0-35) 04/14/23 07:14
Alkaline Phosphatase 127 U/L (38-126) H 04/14/23 07:14
Lipase 101 U/L (23-300) 04/13/23 00:23
Vital Signs and I&O:
Vital Signs
Temp Pulse Resp BP Pulse Ox
98.4 F 77 20 168/71 98
04/14/23 08:31 04/14/23 08:31 04/14/23 08:31 04/14/23 08:31 04/14/23 08:31
I&O
04/13/23 04/14/23 04/15/23
06:59 06:59 06:59
Intake Total 1440 / 1440
Balance 1440 / 1440
Physical Exam
Physical Exam
HEENT: Anicteric and Moist mucous membranes
Cardiology: Normal Sinus Rhythm
Pulmonary: Clear
GI: Soft, Non Distended and Non Tender
Extremities: No Edema
Neuro: Non Focal
[2023-04-14 16:27] VITALS: BP 146/78
--- NOTE | 2023-04-14 17:19 | CM ---
CM following re: d/c planning
Chart reviewed
CM met with the patient at bedside; IA completed
Pt states she resides in a 1[facility] with no [place]
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
Pt has no past hx of VN/SNF/DME
Pt does have confirmed prescription coverage and rx's are filled at [facility] on [address]
Pt PCP-Jairo Lopez
Pt is functionally independent and has no skilled needs identified
CM will continue to follow patient progress and assist with any needs at d/c as applicable
PLAN; d/c home no needs anticipated
[2023-04-14] MEDS: TOPROL XL 25 MG PO (21:18)
[2023-04-14 23:48] VITALS: BP 137/84
[2023-04-15] VITALS (12 sets, daily range): BP systolic 118–161; BP diastolic 54–88
[2023-04-15] MEDS: LR 1000 IV ×2 (01:43→12:07)
[2023-04-15] MEDS: SYNTHROID 150 MCG PO (05:13)
[2023-04-15 08:21] LABS: Hematocrit 34.8 % (37.0-47.0); Hemoglobin 12.4 g/dL (12.0-16.0); Mean Corp Hgb Conc. 35.6 g/dL (33.0-37.0); Mean Corpuscular Hgb 32.8 pg (27.0-31.0); Mean Corpuscular Volume 92.1 fL (81.0-99.0); Platelet Count 229 10^3/uL (130-400); Red Blood Cell Count 3.78 10^6/uL (4.20-5.40); Red Cell Dist. Width 12.9 % (11.5-14.5); White Blood Cell Count 7.7 10^3/uL (4.8-10.8)
[2023-04-15 08:54] LABS: ALT (SGPT) 20 U/L (0-35); AST (SGOT) 29 U/L (14-36); Albumin 3.6 g/dl (3.5-5.0); Alkaline Phosphatase 141 U/L (38-126); Blood Urea Nitrogen 8 mg/dl (7-17); Calcium 8.7 mg/dl (8.4-10.2); Carbon Dioxide 23 mmol/L (22-30); Chloride 107 mmol/L (98-107); Estimated Creatinine Clearance 85 ml/min; Glucose 92 mg/dl (70-99); Magnesium 2.2 mg/dl (1.6-2.3); Potassium 4.4 mmol/L (3.5-5.1); Sodium 135 mmol/L (135-145); Total Bilirubin 0.9 mg/dl (0.2-1.3); Total Protein 5.9 g/dl (6.3-8.2); eGFR > 60.00
[2023-04-15] MEDS: ARIMIDEX 1 MG PO (10:11)
[2023-04-15] MEDS: PROTONIX IV 40 MG IV (10:11)
[2023-04-15] MEDS: NSS (PRESERVATIVE FREE) 10 ML IV (10:11)
[2023-04-15] MEDS: TOPROL XL 50 MG PO (10:12)
--- NOTE | 2023-04-15 11:45 | W.PN.HOSP.TC ---
Today's Communication/Plan
-
EUS/ERCP today
CCY post-procedure - timing will be planned
Assessment / Plan
Assessment / Plan
Physical Exam
General: Other (77y F in no acute distress.)
HEENT: Moist mucous membranes and PERRLA
Respiratory: Clear; No Wheezes, Rales or Rhonchi
Cardiac: S1/S2, Irregular Rhythm and Murmur (II/ GRABIEL)
GI: Soft, Non Distended, Normal Bowel Sounds and Other (Obese)
Musculoskeletal: No Clubbing, No Cyanosis and No Edema
Neuro: AO x 3
A/P:� Patient is a 77y F with PMH significant for multiple prior abdominal surgeries, end ileostomy, A-Fib and HTN who presents to ED complaining of SOB.
Choledocholithiasis
�- Admit for further evaluation and treatment.
�- Though patient denies pain - her symptom of inability to take deep breath is likely due to the above.
�- IVF
�- GI and Surgery evaluations.
�- EUS/ERCP today
�-Eventual cholecystectomy post ERCP
Paroxysmal Atrial Fibrillation
�- Stable.� In controlled A-Fib at present.
�- Continue metoprolol.
�- Hold Eliquis for now pending possible intervention.
�- Last dose of Eliquis was 04/12 PM.
Hypothyroidism
�- Stable.� Continue T4 supplementation.
Crohn's Disease
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
�- Two parastomal hernias in the past requiring surgery / hernia repair(s) with mesh.
�- Stoma functioning well.
Breast Cancer
�- s/p lumpectomy and XRT.
�- Continue anastrazole daily.
Obesity due to excess calories
�- Affects all aspects of care.
�- Encourage healthy diet / activity with goal of weight loss.
DVT Prophylaxis:� SCDs
Code Status:� Full
Anticipated Discharge: 24 - 48 hours
Subjective/Interval History
-
Date of Service: April 15, 2023
Negative overnight, planning for EUS/ERCP
Objective Data
-
Labs:
Laboratory Results
04/15/23
08:03
WBC 7.7
Hgb 12.4
Hct 34.8 L
Plt Count 229
Sodium 135
Potassium 4.4
Chloride 107
Carbon Dioxide 23
BUN 8
Creatinine 0.5 L
Glucose 92
Calcium 8.7
Total Bilirubin 0.9
AST 29
ALT 20
Alkaline Phosphatase 141 H
Vital Signs:
Vital Signs
Temp Pulse Resp BP Pulse Ox
97.9 F 79 18 152/66 96
04/15/23 07:00 04/15/23 07:00 04/15/23 07:00 04/15/23 07:00 04/15/23 11:28
I&O
04/14/23 04/15/23 04/16/23
06:59 06:59 06:59
Intake Total 1440 / 1440
Balance 1440 / 1440
Review of Systems
-
History Source: Patient
All other systems: Not reviewed unless documented
Data Reviewed
-
Diagnostic Radiology: Report Reviewed by me
Ultrasound: Image personally visualized and interpreted and Report Reviewed by me
Labs: Labs Reviewed by me
--- NOTE | 2023-04-15 12:07 | W.PN.GS2 ---
Today's Communication / Plan
-
lap liborio tomorrow 04/16/23 after ERCP
Assessment / Plan
-
Assessment: 77-year-old female presenting with choledocholithiasis and gallstones with acute biliary colic.
Patient undergoing ERCP today.
Discussed with patient indications for cholecystectomy and she would like to proceed with cholecystectomy at this hospitalization.
Laparoscopic cholecystectomy was reviewed in detail including the operative technique, potential operative findings and their management as a relates to her previous abdominal surgical history, benefits and potential risks such as but not limited to
bleeding, infectious or wound related complications, iatrogenic injury to surrounding viscera, bile leak and bile duct injury. Any of the patient's concerns or questions were fully addressed.
Plan: ERCP today
Okay for resumption of p.o. intake post procedure but needs to be n.p.o. after midnight for the OR tomorrow 04/16/2023 for cholecystectomy
Subjective Data
-
Date of Service: April 15, 2023
Patient seen in follow-up. Presenting symptoms resolved. No residual abdominal pain. No nausea. She is awaiting ERCP today
Objective Data
-
Intake and Output
04/14/23 04/15/23 04/16/23
06:59 06:59 06:59
Intake Total 1440 / 1440
Balance 1440 / 1440
Intake:
Oral fluids 480 / 480
IV fluids (Total) 960 / 960
Other:
Number of approximated SMALL 1
amounts of urine
Number of approximated MODERATE 4 3
amounts of urine
Vital Signs
Temp Pulse Resp BP Pulse Ox
97.9 F 79 18 152/66 96
04/15/23 07:00 04/15/23 07:00 04/15/23 07:00 04/15/23 07:00 04/15/23 11:28
Lab Results
04/15/23 08:03
04/15/23 08:03
Calcium 8.7 mg/dl (8.4-10.2) 04/15/23 08:03
Magnesium 2.2 mg/dl (1.6-2.3) 04/15/23 08:03
Total Bilirubin 0.9 mg/dl (0.2-1.3) 04/15/23 08:03
Direct Bilirubin 0.4 mg/dl (0.0-0.4) 04/14/23 07:14
AST 29 U/L (14-36) 04/15/23 08:03
ALT 20 U/L (0-35) 04/15/23 08:03
Alkaline Phosphatase 141 U/L (38-126) H 04/15/23 08:03
Total Protein 5.9 g/dl (6.3-8.2) L 04/15/23 08:03
Albumin 3.6 g/dl (3.5-5.0) 04/15/23 08:03
Physical Exam
-
NAD AAOx3
ABD: soft, ND, slight epigastric tenderness
no R/R/G
[2023-04-15] MEDS: TYLENOL 650 MG PO ×2 (13:28→21:07)
--- NOTE | 2023-04-15 19:10 | PTCARENOTE ---
Received patient s/p EUS. Patient able to stand and pivot from stretcher to bed with assistance. Orders for clear liquids for dinner, NPO after midnight. Patient offers no complaints.
[2023-04-15] MEDS: TOPROL XL 25 MG PO (21:08)
[2023-04-16] VITALS (15 sets, daily range): BP systolic 92–146; BP diastolic 43–82
[2023-04-16] MEDS: TYLENOL 650 MG PO (05:36)
[2023-04-16] MEDS: SYNTHROID 150 MCG PO (05:36)
[2023-04-16] MEDS: LR 1000 IV ×2 (05:58→22:34)
[2023-04-16 07:59] LABS: Hematocrit 36.4 % (37.0-47.0); Hemoglobin 12.5 g/dL (12.0-16.0); Mean Corp Hgb Conc. 34.3 g/dL (33.0-37.0); Mean Corpuscular Hgb 33.3 pg (27.0-31.0); Mean Corpuscular Volume 97.1 fL (81.0-99.0); Mean Platelet Volume 10.3 fL (7.4-10.4); Platelet Count 243 10^3/uL (130-400); Red Blood Cell Count 3.75 10^6/uL (4.20-5.40); Red Cell Dist. Width 12.8 % (11.5-14.5); White Blood Cell Count 5.5 10^3/uL (4.8-10.8)
--- NOTE | 2023-04-16 08:06 | W.PN.UPDATE ---
Update Note
Progress Note Update
Status post EUS yesterday with Dr. Garcia no evidence of CBD stone seen, proceed with cholecystectomy timing per surgery. Will sign off and will be available as needed
[2023-04-16 08:16] LABS: ALT (SGPT) 19 U/L (0-35); AST (SGOT) 27 U/L (14-36); Albumin 3.3 g/dl (3.5-5.0); Alkaline Phosphatase 134 U/L (38-126); Blood Urea Nitrogen 8 mg/dl (7-17); Calcium 8.2 mg/dl (8.4-10.2); Carbon Dioxide 27 mmol/L (22-30); Chloride 104 mmol/L (98-107); Estimated Creatinine Clearance 85 ml/min; Glucose 89 mg/dl (70-99); Potassium 4.3 mmol/L (3.5-5.1); Sodium 135 mmol/L (135-145); Total Bilirubin 0.8 mg/dl (0.2-1.3); Total Protein 5.5 g/dl (6.3-8.2); eGFR > 60.00
--- NOTE | 2023-04-16 09:03 | W.PN.UPDATE ---
Update Note
Progress Note Update
Patient posted for the OR today. Will plan for laparoscopic cholecystectomy possible cholangiogram as EUS was negative.
Risks/Benefits/Alternatives discussed at length as well as possible postoperative complications (bleeding, infection, injury to surrounding structures, acute/chronic pain) and typical postoperative course. patient wishes to proceed with surgery. All
questions answered. Consent obtained.
[2023-04-16] MEDS: ARIMIDEX 1 MG PO (09:23)
[2023-04-16] MEDS: NSS (PRESERVATIVE FREE) 10 ML IV (09:24)
[2023-04-16] MEDS: TOPROL XL 50 MG PO (09:24)
[2023-04-16] MEDS: PROTONIX IV 40 MG IV (09:24)
--- NOTE | 2023-04-16 14:06 | W.PN.HOSP.TC ---
Today's Communication/Plan
-
post EUS yesterday with Dr. Garcia no evidence of CBD stone see
�cholecystectomy today
Assessment / Plan
Assessment / Plan
Physical Exam
General: Other (77y F in no acute distress.)
HEENT: Moist mucous membranes and PERRLA
Respiratory: Clear; No Wheezes, Rales or Rhonchi
Cardiac: S1/S2, Irregular Rhythm and Murmur (II/ GRABIEL)
GI: Soft, Non Distended, Normal Bowel Sounds and Other (Obese)
Musculoskeletal: No Clubbing, No Cyanosis and No Edema
Neuro: AO x 3
A/P:� Patient is a 77y F with PMH significant for multiple prior abdominal surgeries, end ileostomy, A-Fib and HTN who presents to ED complaining of SOB.
Choledocholithiasis
�- Admit for further evaluation and treatment.
�- Though patient denies pain - her symptom of inability to take deep breath is likely due to the above.
�- IVF
�- GI and Surgery evaluations.
�- EUS/ERCP - post EUS yesterday with Dr. Garcia no evidence of CBD stone seen
�-cholecystectomy today
Paroxysmal Atrial Fibrillation
�- Stable.� In controlled A-Fib at present.
�- Continue metoprolol.
�- Hold Eliquis for now due to intervention.
�- Last dose of Eliquis was 04/12 PM.
Hypothyroidism
�- Stable.� Continue T4 supplementation.
Crohn's Disease
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
�- Two parastomal hernias in the past requiring surgery / hernia repair(s) with mesh.
�- Stoma functioning well.
Breast Cancer
�- s/p lumpectomy and XRT.
�- Continue anastrazole daily.
Obesity due to excess calories
�- Affects all aspects of care.
�- Encourage healthy diet / activity with goal of weight loss.
DVT Prophylaxis:� SCDs
Code Status:� Full
Anticipated Discharge: Within 24 hours
Subjective/Interval History
-
Date of Service: April 16, 2023
post EUS yesterday with Dr. Garcia no evidence of CBD stone seen
Objective Data
-
Labs:
Laboratory Results
04/16/23
07:18
WBC 5.5
Hgb 12.5
Hct 36.4 L
Plt Count 243
Sodium 135
Potassium 4.3
Chloride 104
Carbon Dioxide 27
BUN 8
Creatinine 0.5 L
Glucose 89
Calcium 8.2 L
Total Bilirubin 0.8
AST 27
ALT 19
Alkaline Phosphatase 134 H
Vital Signs:
Vital Signs
Temp Pulse Resp BP Pulse Ox
98.6 F 79 18 140/70 93
04/16/23 12:13 04/16/23 12:13 04/16/23 12:13 04/16/23 12:13 04/16/23 08:12
I&O
04/15/23 04/16/23 04/17/23
06:59 06:59 06:59
Intake Total 580 / 580
Balance 580 / 580
Review of Systems
-
History Source: Patient
All other systems: Not reviewed unless documented
Data Reviewed
-
Diagnostic Radiology: Report Reviewed by me
Ultrasound: Image personally visualized and interpreted and Report Reviewed by me
Labs: Labs Reviewed by me
--- NOTE | 2023-04-16 16:00 | CM ---
CM following re: d/c planning
Chart reviewed
Pt discharge anticipated within the next 24 hours
Pt is scheduled for lap liborio
Pt has no skilled needs noted once stable for d/c
CM will remain available and assist with any needs that may be available as applicable
PLAN; d/c home no needs anticipated
--- NOTE | 2023-04-16 16:35 | W.IMMPOSTOP ---
Addendum entered and electronically signed by Alexey Brenner MD 04/16/23 16:56:
#[id number]
Eliquis should be held 72hrs post op; resume wednesday04/19/23
low fat diet as tolerated post op
updated via phone call
Original Note:
Surgical Immed Post Op Note
-
Primary Surgeon: Jordin
Assisting Surgeon: Lucila BOOKER
Pre-op Diagnosis: Chronic calculus cholecystitis
Post-op Diagnosis: Chronic calculus cholecystitis
Procedure Performed: Laparoscopic cholecystectomy
Anesthesia Type: GETA +0.25% Marcaine
Specimen / Cultures: Gallbladder
Estimated Blood Loss: 12 mL
Complications: None immediate
Operative Findings: Large gallstone, calcified areas of gallbladder wall particularly around cystic infundibular junction. Cystic duct and artery identified and controlled with clips with critical view of safety. Gallbladder removed intact and
extracted at epigastric port site. Brandon cutdown for abdominal access at epigastric 12 mm trocar site. No adhesions affecting cholecystectomy.
[2023-04-16] MEDS: SUBLIMAZE 25 MCG IV (17:08)
[2023-04-16] MEDS: DILAUDID 0.5 MG IV ×2 (18:21→21:09)
--- NOTE | 2023-04-16 18:26 | PTCARENOTE ---
Arrived from OR with 10/10 upper back pain to R side. RECREATION ESTABLISHMENT MANAGER reported that she notified Dr. Andrew and administered med per MAR in PACU. Upon arrival to floor this RN administered PRN Dilaudid for severe pain. 5 lap sites intact.
[2023-04-16] MEDS: LR IV (18:28)
[2023-04-16] MEDS: TOPROL XL 25 MG PO (19:46)
[2023-04-17] MEDS: SYNTHROID 150 MCG PO (03:05)
[2023-04-17] MEDS: DILAUDID 0.5 MG IV ×2 (03:05→06:39)
[2023-04-17 03:45] VITALS: BP 146/84
[2023-04-17 07:52] VITALS: BP 141/75
[2023-04-17 08:03] LABS: ALT (SGPT) 29 U/L (0-35); AST (SGOT) 42 U/L (14-36); Albumin 3.6 g/dl (3.5-5.0); Alkaline Phosphatase 153 U/L (38-126); Blood Urea Nitrogen 9 mg/dl (7-17); Calcium 8.3 mg/dl (8.4-10.2); Carbon Dioxide 25 mmol/L (22-30); Chloride 102 mmol/L (98-107); Estimated Creatinine Clearance 85 ml/min; Glucose 128 mg/dl (70-99); Potassium 4.3 mmol/L (3.5-5.1); Sodium 132 mmol/L (135-145); Total Bilirubin 0.6 mg/dl (0.2-1.3); Total Protein 5.8 g/dl (6.3-8.2); eGFR > 60.00
[2023-04-17] MEDS: PROTONIX IV 40 MG IV (09:31)
[2023-04-17] MEDS: NSS (PRESERVATIVE FREE) 10 ML IV (09:31)
[2023-04-17] MEDS: TOPROL XL 50 MG PO (09:31)
[2023-04-17] MEDS: FLUSH (NSS) 2 FLUSH IV (09:32)
[2023-04-17] MEDS: ARIMIDEX 1 MG PO (09:32)
[2023-04-17] MEDS: LR 1000 IV (09:32)
--- NOTE | 2023-04-17 09:37 | W.PN.GS2 ---
Today's Communication / Plan
-
POD#1 Laparoscopic cholecystectomy
1. Vitals normal.
2. Tolerating a diet.
3. Hold Eliquis for 72 hours, okay to restart on Wednesday.
4. Okay for discharge from our perspective. Follow up in the office with Dr. Brenner in 2 weeks. Continue on a low fat diet.
Assessment / Plan
-
Assessment: 77-year-old female presenting with choledocholithiasis and gallstones with acute biliary colic.
POD#1 Laparoscopic cholecystectomy
Plan:
1. Vitals normal.
2. Labs pending.
3. Tolerating a low fat diet.
4. OOB as tolerated.
5. OR pathology pending.
6. Lovenox for DVT prophlyaxis.
7. Hold Eliquis 72 hours from surgery, then okay to restart.
Subjective Data
-
Date of Service: April 17, 2023
Patient states she feels 'great'. She has no nausea. She denies pain. She has gas and some amounts of stool in her colostomy. She has no complaints. She is tolerating a diet.
Objective Data
-
Intake and Output
04/16/23 04/17/23 04/18/23
06:59 06:59 06:59
Intake Total 580 / 580 1660 / 1660
Balance 580 / 580 1660 / 1660
Intake:
Oral fluids 480 / 480 600 / 600
IV fluids (Total) 100 / 100 1060 / 1060
LR 100 / 100
normosol 100 / 100
Other:
Number of approximated MODERATE 3 6
amounts of urine
Vital Signs
Temp Pulse Resp BP Pulse Ox
97.9 F 78 18 141/75 95
04/17/23 07:52 04/17/23 09:31 04/17/23 07:52 04/17/23 09:31 04/17/23 07:52
Lab Results
04/17/23 06:44
Calcium 8.3 mg/dl (8.4-10.2) L 04/17/23 06:44
Magnesium 2.2 mg/dl (1.6-2.3) 04/15/23 08:03
Total Bilirubin 0.6 mg/dl (0.2-1.3) 04/17/23 06:44
Direct Bilirubin 0.4 mg/dl (0.0-0.4) 04/14/23 07:14
AST 42 U/L (14-36) H 04/17/23 06:44
ALT 29 U/L (0-35) 04/17/23 06:44
Alkaline Phosphatase 153 U/L (38-126) H 04/17/23 06:44
Total Protein 5.8 g/dl (6.3-8.2) L 04/17/23 06:44
Albumin 3.6 g/dl (3.5-5.0) 04/17/23 06:44
Physical Exam
-
General: AAOX3, NAD
Abdomen: soft, non-tender, non-palpable, colostomy warm and pink with function
Skin: warm and dry, incisions c/d/i
--- NOTE | 2023-04-17 11:23 | W.PN.HOSP.TC ---
Addendum entered and electronically signed by Niko Vick MD 04/18/23 15:04:
[id number]
Original Note:
Today's Communication/Plan
-
Low-fat diet
LR bolus
Follow BMP outpatient with PCP
Eliquis can restart on Wednesday
Follow-up surgery, GI outpatient
Assessment / Plan
Assessment / Plan
Physical Exam
General: Other (77y F in no acute distress.)
HEENT: Moist mucous membranes and PERRLA
Respiratory: Clear; No Wheezes, Rales or Rhonchi
Cardiac: S1/S2, Irregular Rhythm and Murmur (II/ GRABIEL)
GI: Soft, Non Distended, Normal Bowel Sounds and Other (Obese)
Musculoskeletal: No Clubbing, No Cyanosis and No Edema
Neuro: AO x 3
A/P:� Patient is a 77y F with PMH significant for multiple prior abdominal surgeries, end ileostomy, A-Fib and HTN who presents to ED complaining of SOB.
Choledocholithiasis
�- EUS/ERCP - post EUS 04/[address] Garcia no evidence of CBD stone seen
�-cholecystectomy 2
� Hold Eliquis for 72 hours, okay to restart on Wednesday
-Follow-up surgery outpatient, follow GI outpatient
-Low-fat diet
Paroxysmal Atrial Fibrillation
�- Stable.� In controlled A-Fib at present.
�- Continue metoprolol.
�- Last dose of Eliquis was 04/12 PM.
�Restart Eliquis on Wednesday
Hypothyroidism
�- Stable.� Continue T4 supplementation.
#Hyponatremia
� Mild
� Suspect secondary to slight dehydration with lack of p.o. intake
� LR bolus today
� Follow BMP outpatient
Crohn's Disease
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
�- Two parastomal hernias in the past requiring surgery / hernia repair(s) with mesh.
�- Stoma functioning well.
Breast Cancer
�- s/p lumpectomy and XRT.
�- Continue anastrazole daily.
Obesity due to excess calories
�- Affects all aspects of care.
�- Encourage healthy diet / activity with goal of weight loss.
DVT Prophylaxis:� SCDs
Code Status:� Full
More than 30 minutes spent in discharge including
Final examination of the patient
Summarizing hospital stay
Instructions for continuing care to all relevant caregivers
Preparation of discharge records, prescriptions, and referral forms
Total time spent (35 in minutes):
Anticipated Discharge: Today
Subjective/Interval History
-
Date of Service: April 17, 2023
Tolerated laparoscopic cholecystectomy well
Objective Data
-
Labs:
Laboratory Results
04/17/23 04/17/23
06:44 09:02
WBC Cancelled Pending
Hgb Cancelled Pending
Hct Cancelled Pending
Plt Count Cancelled Pending
Sodium 132 L
Potassium 4.3
Chloride 102
Carbon Dioxide 25
BUN 9
Creatinine 0.4 L
Glucose 128 H
Calcium 8.3 L
Total Bilirubin 0.6
AST 42 H
ALT 29
Alkaline Phosphatase 153 H
Vital Signs:
Vital Signs
Temp Pulse Resp BP Pulse Ox
97.9 F 78 18 141/75 95
04/17/23 07:52 04/17/23 09:31 04/17/23 07:52 04/17/23 09:31 04/17/23 07:52
I&O
04/16/23 04/17/23 04/18/23
06:59 06:59 06:59
Intake Total 580 / 580 1660 / 1660
Balance 580 / 580 1660 / 1660
Review of Systems
-
History Source: Patient
All other systems: Not reviewed unless documented
Data Reviewed
-
Diagnostic Radiology: Report Reviewed by me
Ultrasound: Image personally visualized and interpreted and Report Reviewed by me
Labs: Labs Reviewed by me
[2023-04-17] MEDS: TYLENOL 1000 MG PO (11:29)
[2023-04-17] MEDS: OCEAN, SALINE MIST 2 SPRAYS NASAL (11:29)
--- NOTE | 2023-04-17 11:35 | W.DS.TRANS ---
DC Summary - Site Safety Coordinator
-
Discharge Instructions:
Sleep Apnea Risk High
Discharge Diagnosis/Procedures Cholecystitis, laparoscopic cholecystectomy
Diet As tolerated,Low Fat
Additional Diets Smaller meals initially after surgery as
abdominal bloating and distention may be common
for the first few days
Activity No strenuous activity
Additional Activity No lifting over 15 to 20 pounds for 4 weeks
postop. Walking, standing, stairs and routine
light activities are all okay as tolerated.
Driving Restrictions No driving for 1 to 2 days or if using narcotics
.
Bathing Restrictions OK to Shower
Wound Care Glue at surgical sites typically peels off in 2
to 3 weeks
Instructions:
Stand-Alone Forms:
Changes to Home Medications: Yes
Discharge Medications:
DC Medications w/original date entered in [facility]
levothyroxine 150 mcg tablet 150 mcg PO DAILY Thyroid 08/07/15
fluticasone propionate 50 mcg/actuation nasal spray,suspension 1 spray SPRAY DAILY Congestion 08/26/15
multivitamin (Multi-Day tablet) 1 tab PO DAILY Supplement 08/26/15
atorvastatin 10 mg tablet 10 mg PO HS ##30 09/07/15
apixaban 5 mg tablet (Eliquis) 5 mg PO BID #60 tabs 03/03/18
anastrozole 1 mg tablet 1 mg PO DAILY Hormonal Agent 04/13/23
celecoxib 200 mg capsule 200 mg PO BID Pain 04/13/23
esomeprazole magnesium 20 mg capsule,delayed release 20 mg PO BID Gastrointestinal Issue 04/13/23
levocetirizine 5 mg tablet (Xyzal) 5 mg PO DAILY Allergies 04/13/23
metoprolol succinate 25 mg tablet,extended release 24 hr 25 mg PO HS Blood Pressure 04/13/23
metoprolol succinate 25 mg tablet,extended release 24 hr 50 mg PO DAILY Blood Pressure 04/13/23
Home Medication Changes
apixaban 5 mg tablet (Eliquis) 5 mg PO BID #60 tabs 03/03/18 - hold until wednesday 04/19
Pending Results: No
[2023-04-17 11:46] VITALS: BP 136/63
[2023-04-17 11:59] LABS: Hematocrit 37.9 % (37.0-47.0); Hemoglobin 13.1 g/dL (12.0-16.0); Mean Corp Hgb Conc. 34.6 g/dL (33.0-37.0); Mean Corpuscular Hgb 32.7 pg (27.0-31.0); Mean Corpuscular Volume 94.5 fL (81.0-99.0); Mean Platelet Volume 11.4 fL (7.4-10.4); Platelet Count 286 10^3/uL (130-400); Red Blood Cell Count 4.01 10^6/uL (4.20-5.40); Red Cell Dist. Width 12.7 % (11.5-14.5)
--- NOTE | 2023-04-17 12:50 | CM ---
Met with patient at bedside
IMM explained and signed
Spouse at bedside; will provide transport home
Plan: discharge to home without services
--- NOTE | 2023-04-17 13:00 | PTCARENOTE ---
Made Dr. Vick aware of increase in pt's WBC to 12.0 from 5.5. Pt did have surgery yesterday ,afebrile. Dr. Vick encouraged pt to have CBC done with PCP in 3-5 days, passed on to pt. Pt verbalized understanding.
== END 2023-04-17 15:30 | disposition home or self-care (01) | DRG 418 ==
LOC: 4 EAST ACU 06:40
PROVIDERS: Internal Medicine Gastroenterology; Surgery; ADMITTING PHYSICIAN Hospitalist; ATTENDING PHYSICIAN Internal Medicine; CONSULT PHYSICIAN Internal Medicine Gastroenterology; CONSULT PHYSICIAN Surgery; EMERGENCY PHYSICIAN Emergency Medicine; FAMILY PHYSICIAN Family Medicine
PROC: 0DJ08ZZ Inspection of Upper Intestinal Tract, Via Natural or Artificial Opening Endoscopic (ICD-10-PCS; 2023-04-15)
PROC: 0FJD8ZZ Inspection of Pancreatic Duct, Via Natural or Artificial Opening Endoscopic (ICD-10-PCS; 2023-04-15)
PROC: 0FT44ZZ Resection of Gallbladder, Percutaneous Endoscopic Approach (ICD-10-PCS; 2023-04-16)
DX: K80.40 Calculus of bile duct with cholecystitis, unspecified, without obstruction (principal); I48.92 Unspecified atrial flutter; K50.90 Crohn's disease, unspecified, without complications; Z87.891 Personal history of nicotine dependence; I48.0 Paroxysmal atrial fibrillation; Z90.49 Acquired absence of other specified parts of digestive tract; E66.09 Other obesity due to excess calories; Z79.01 Long term (current) use of anticoagulants; I10 Essential (primary) hypertension; E89.0 Postprocedural hypothyroidism; E78.00 Pure hypercholesterolemia, unspecified
CPT/HCPCS: 88304; 71046; 76700; 80053; 82248; 83690; 83735; 83880; 84443; 84484; 85025; 85027; 86803; 93005; 96361; 96374; 96375; 99285

== ENCOUNTER → 2023-04-21 16:28 | Outpatient (REF) | payer OTHER, SELFPAY | LOC: RAD 16:28 | PROVIDERS: ATTENDING PHYSICIAN Physician Assistant Medical | DX: R05.1 Acute cough (principal) | CPT/HCPCS: 71046 ==

== ENCOUNTER → 2023-06-10 10:16 | Outpatient (REF) | payer OTHER, SELFPAY | LOC: RAD 10:16 | PROVIDERS: ATTENDING PHYSICIAN Family Medicine | DX: R05.8 Other specified cough (principal) | CPT/HCPCS: 71046 ==

== ENCOUNTER 2023-07-10 22:21 | Emergency (ER) | payer OTHER, SELFPAY ==
[2023-07-10 22:22] VITALS: BP 146/79
[2023-07-10 22:25] VITALS: BP 146/79
--- NOTE | 2023-07-11 00:08 | ED.MUSCINJ ---
HPI-Injury
<Becky Osullivan NP - Last Filed: 07/11/23 01:37>
General
Chief Complaint: Fall
Source: patient
Exam Limitations: none
Time Seen by Provider: 07/10/23 22:23
Nursing documentation reviewed up to this point in time: agreed with
Travel History
Have you had any contact with someone who has COVID-19?: No
Do you have any symptoms of coronavirus? Fever > 100 degrees, chills, cough, shortness of breath, sore throat, loss of taste or smell, muscle aches, or headache?: No
History of Present Illness-Injury
Is this injury a work related problem?: No
Is pt an associate of [facility]?: No
Initial Injury comments:
Patient states she tripped over a gate in her laundry room and fell. Hit chin, mouth on carpeted floor. No LOC. Complains of pain to her right hand. Has 2 lacerations to dorusm of right hand. Swelling to upper lip with small laceration
present. 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 Brought to ED via EMS for eval. On eliquis, hx of afib. Last dose 7pM tonight.
Past History
<Becky Osullivan WET MACHINE OPERATOR - Last Filed: 07/11/23 01:37>
Past History
ED Past Medical History: Arrthythmia (Paroxysmal atrial fibrillation), Hypercholesterolemia, Hypothyroidism and Other (Crohn's disease colostomy in 1981 with total colectomy, thyroidectomy)
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
Social History
Tobacco: Former smoker (Quit cigarettes in 1988)
Alcohol: None
Drug: None
Personal:
Living: with family
Employment: Retired
Family History
Family History: Other (Noncontributory)
Review of Systems
<Becky Osullivan NP - Last Filed: 07/11/23 01:37>
Review of Systems
Allergies reviewed?: Yes
All Other Systems: ROS reviewed and negative except as documented in HPI and ROS
Constitutional: Reports no symptoms
EENT: Reports other (Epistaxis INTERACTIVE MEDIA PROJECT MANAGER)
Respiratory: Reports no symptoms
Cardiac: Reports no symptoms
ABD/GI: Reports no symptoms
: Reports no symptoms
Musculoskeletal: Reports joint pain (Pain to right dorsal hand)
Skin: Reports other (Laceration right dorsal hand x 2, upper lip)
Neurological: Reports no symptoms
Psychiatric: Reports no symptoms
Musculoskeletal Injury Exam
<Becky Osullivan NP - Last Filed: 07/11/23 01:37>
Musculoskeletal Injury Exam
Right Hand:
Pain with Movement?: Moderate
Tender to palpation?: Moderate
Soft tissue swelling?: Mild
External deformity and angulation?: None
Joint effusion?: None
Contusion?: Moderate
Hematoma-local bleeding into tissue?: Moderate
Strain- Sprain- Tear (Connective tissue injury)?: None
Crepitus with movement?: No
Joint instability?: No
Malalignment/deformity?: No
Range of motion: Full
Distal skin color and temperature: normal-warm & good color
Capillary Refill: normal
Normal distal neurovascular exam?: Yes
Phy Exam
<Becky Osullivan NP - Last Filed: 07/11/23 01:37>
General Physical Exam
General Presentation: well appearing and mild distress
General age: appears stated age
General Skin: warm and dry
General Habitus: normal
General Mental: alert
General Hydration: appears well hydrated
Cardiovascular Exam
Cardiovascular Exam: regular rate/rhythm and no edema
Pulmonary Exam
Pulmonary Exam: lungs clear, no respiratory distress and chest non tender
Gastrointestinal Exam
Gastrointestinal Exam: normal bowel sounds, non tender, soft and no organomegaly
Neurological Exam
Neurological Exam: alert, oriented x3, CN II-XII intact, no sensory deficits, speech normal and normal gait
[place] Coma Scale
Eye Opening: Spontaneous
Verbal Response: Oriented
Motor Response: Obeys Commands
GCS Total Score: 15
Musculoskeletal Exam
Musculoskeletal Exam: full ROM and neuro vasc intact
Skin Exam
Skin Exam: normal color, warm/dry and no rash
Psychiatric Exam
Psychiatric Exam: normal mood/affect
<Valeriano Linares DO - Last Filed: 07/11/23 00:37>
[place] Coma Scale
GCS Total Score: 15
Injury Course
<Becky Osullivan, WET MACHINE OPERATOR - Last Filed: 07/11/23 01:37>
Orders/Labs/Results
Orders:
Orders
07/10/23 22:37
CT Head W/o Iv Contrast Urgent
Comment:
Reason For Exam: trauma
Facial Bones wo Contrast CT [CT Facial Bones W/o Iv Contras] Urgent
Comment:
Reason For Exam: trauma
Hand, Right 3 View [CR Hand - Right Min 3 Views] Urgent
Comment:
Reason For Exam: trauma
07/11/23 00:00
CT Cervical Spine W/o Iv Contr Urgent
Reason For Exam: fall
07/11/23 00:35
Levetiracetam Injectable [Keppra] 1,000 mg IV NOW STA
07/11/23 00:37
Nicardipine 40 mg/200 ml [Cardene] 40 mg in 200 ml IV NOW
Initial dose in mg/hr, then titrate:: 5
Titrate to keep:: SBP 120 - 140 mmHg
Titrate by mg/hr:: 2.5 mg/hr
Frequency of titrations (minutes):: 5-15 minutes
Maximum dose in mg/hr:: 15
Begin to taper infusion when:: Remained at goal for 2hrs
Taper by mg/hr:: 2.5 mg/hr
Frequency of taper (minutes) if patient maintains goal:: 15-30 minutes
Taper to off?: Yes
If infusion off & no longer maintaining goal:: Contact Provider
<Valeriano Linares, DO - Last Filed: 07/11/23 00:37>
Orders/Labs/Results
Orders:
Orders
07/10/23 22:37
CT Head W/o Iv Contrast Urgent
Comment:
Reason For Exam: trauma
Facial Bones wo Contrast CT [CT Facial Bones W/o Iv Contras] Urgent
Comment:
Reason For Exam: trauma
Hand, Right 3 View [CR Hand - Right Min 3 Views] Urgent
Comment:
Reason For Exam: trauma
07/11/23 00:00
CT Cervical Spine W/o Iv Contr Urgent
Reason For Exam: fall
07/11/23 00:35
Levetiracetam Injectable [Keppra] 1,000 mg IV NOW STA
07/11/23 00:37
Nicardipine 40 mg/200 ml [Cardene] 40 mg in 200 ml IV NOW
Initial dose in mg/hr, then titrate:: 5
Titrate to keep:: SBP 120 - 140 mmHg
Titrate by mg/hr:: 2.5 mg/hr
Frequency of titrations (minutes):: 5-15 minutes
Maximum dose in mg/hr:: 15
Begin to taper infusion when:: Remained at goal for 2hrs
Taper by mg/hr:: 2.5 mg/hr
Frequency of taper (minutes) if patient maintains goal:: 15-30 minutes
Taper to off?: Yes
If infusion off & no longer maintaining goal:: Contact Provider
<Valeriano Linares DO - Last Filed: 07/11/23 00:37>
*Critical Care Note
Total Time (30-74mins, 75-104mins- exclusive of procedures): 45 minutes
<Becky Osullivan NP - Last Filed: 07/11/23 01:37>
Update Note
Update Note:
Report of patient injury and CT results discussed with Dr. Alyson Nunez [facility] trauma. Recommends Keppra 1000mg now, Cardene drip to maintain Systolic BP less than 140mg. Keppra given, cardene infusing prior to transfer. Patient remains awake
and alert, agreeable to plan for transfer.
ED Attending Note
<Becky Osullivan NP - Last Filed: 07/11/23 01:37>
-
Portions of this chart may have been created with voice recognition software.� Occasional wrong word or��sound alike� substitutions may have occurred due to the inherent limitations of voice recognition software.
<Valeriano Linares DO - Last Filed: 07/11/23 00:37>
ED Attending Note
Patient seen and examined by attending physician: Yes
I performed the substantive portion of visit, reviewed & personally made and approve the management plan that is documented in note by myself or JATIN.: Yes
ED Attending Note:
77-year-old female presents after fall. On Eliquis. Small subarachnoid noted. Patient awake alert. Small lip lack. Small right hand lack. CT with very small subarachnoid. Case was [facility] by nurse practitioner. Transfer
Discharge Plan
Departure
Patient Disposition: Acute Care Hospital
Date of Disposition: 07/11/23
Time of Disposition: 00:51
Patient with high blood pressure during this ER visit?: Yes
Condition: Fair
Covid-19: Not Applicable
Discharge Problem:
Subarachnoid hemorrhage
Prescriptions:
No Action
levothyroxine 150 MCG tablet
150 mcg PO DAILY
multivitamin [Multi-Day] 1 EACH tablet
1 tab PO DAILY
atorvastatin 10 MG tablet
10 mg PO HS Qty: 30 3RF
Eliquis 5 MG tablet
5 mg PO BID Qty: 60 0RF
Hold Instructions: Resume on 04/19/23. Hold therapeutic anticoagulation, Eliquis, for approximately 72 hours postop. Okay to resume 04/16/2023.
celecoxib 200 mg Capsule
200 mg PO BID
anastrozole 1 mg Tablet
1 mg PO DAILY
esomeprazole magnesium 20 mg Capsule,Delayed Release(Dr/Ec)
20 mg PO BID
metoprolol succinate 25 MG tablet extended release 24 hr
50 mg PO DAILY
Referrals:
Jairo Lopez MD [Family Provider] -
Hospital Transfer
Other hospital: [facility]
I certify that the patient requires transfer: Yes
Discussed case with accepting physician: Alyson
Reason for transfer: higher level of care
Interventions
Interventions:
*Risk Screen - Suicide Last Done: 07/10/23 23:55
*General Assessment Last Done: 07/10/23 23:55
*Neglect/Abuse Screening Last Done: 07/10/23 23:55
ED- Fall Risk Assessment Last Done: 07/10/23 22:48
*ED COVID-19 Vaccine History Last Done: 07/11/23 01:14
*Nursing Disposition Last Done: 07/11/23 01:14
ED-Musculoskeletal Assessment Last Done: 07/10/23 22:48
ED- Neurological Assessment Last Done: 07/10/23 22:48
ED-Skin Assessment Last Done: 07/10/23 22:45
Discharge Date and Time
Discharge Date/Time: 07/11/23 01:16
Print Language: UKRAINIAN
[2023-07-11 00:31] VITALS: BP 164/72
[2023-07-11] MEDS: CARDENE 200 IV (00:41)
[2023-07-11] MEDS: KEPPRA 1000 MG IV (00:42)
== END 2023-07-11 01:16 | disposition short-term general hospital (02) ==
LOC: EMR 22:21
PROVIDERS: EMERGENCY PHYSICIAN Emergency Medicine; FAMILY PHYSICIAN Family Medicine
DX: S06.6X0A Traumatic subarachnoid hemorrhage without loss of consciousness, initial encounter (principal); S60.221A Contusion of right hand, initial encounter; S01.511A Laceration without foreign body of lip, initial encounter; W18.09XA Striking against other object with subsequent fall, initial encounter; Z87.891 Personal history of nicotine dependence; Z79.01 Long term (current) use of anticoagulants; I48.0 Paroxysmal atrial fibrillation; R03.0 Elevated blood-pressure reading, without diagnosis of hypertension
CPT/HCPCS: 99291; 96365; 96375; 70450; 70486; 72125; 73130

== ENCOUNTER 2023-07-18 22:29 | Observation (INO) | payer OTHER, SELFPAY ==
[2023-07-18] VITALS (7 sets, daily range): BP systolic 136–153; BP diastolic 68–85; BMI 36.9
--- NOTE | 2023-07-18 17:23 | ED.GENMED ---
History of Present Illness
General
Chief Complaint: Musculo-Skeletal Complaint
Time Seen by Provider: 07/18/23 17:12
Travel History
Have you had any contact with someone who has COVID-19?: Unable to Answer
Do you have any symptoms of coronavirus? Fever > 100 degrees, chills, cough, shortness of breath, sore throat, loss of taste or smell, muscle aches, or headache?: Unable to Answer
History of Present Illness
History of Present Illness:
HPI: Patient presents with left-sided knee pain with after a fall 2 weeks ago. The patient came here after a fall on July 09 and was transferred to [place] due to subarachnoid hemorrhage. However, she states that she has not had any significant
left knee pain until about 4 hours ago. There is no new trauma. She has not had pain like this in the past. She is no longer on Eliquis. She states she was on Eliquis related to a myxoma which led to open heart surgery and did have A-fib in the
past.
EXAM:
GENERAL: Well appearing in moderate distress related to pain at the left knee
HEENT: Moist oral mucosa
FACE: Older appearing patchy ecchymosis related to prior fall
CARDIOVASCULAR: No murmurs, normal heart rate, regular rhythm, No chest wall tenderness
PULMONARY: No respiratory distress, breath sounds are clear and equal
ABDOMEN: Soft with no peritoneal signs, no tenderness
NEUROLOGIC: Excellent strength all extremities, no coordination deficits
PSYCHIATRIC: Appropriate mental status, normal insight and judgement
EXTREMITIES: Left lower extremity�there is effusion noted to the left knee, no evidence of prior surgery, markedly active range of motion into flexion, no significant warmth and no erythema
SKIN: No rash, no lesions
TIME OF INITIAL ENCOUNTER: 5:30 PM
NUMBER AND COMPLEXITY OF PROBLEMS ADDRESSED AT THE ENCOUNTER
� Chronic conditions affecting care: Atrial fibrillation, high blood pressure, hyperlipidemia, Crohn's disease, left atrial myxoma status post excision
� Acute Exacerbation and/or Progression of Chronic Illness: This is an acute problem
� Differential Diagnosis includes: Spontaneous hemarthrosis, ACL/meniscal injury, septic joint, osteoarthritis
AMOUNT AND/OR COMPLEXITY OF DATA TO BE REVIEWED AND ANALYZED
� I performed an independent evaluation of and my interpretation is:
EKG:
CT:
X-rays: I personally viewed x-ray, some degenerative joint disease is noted
Laboratory Studies: White count 10, hemoglobin 13.2, sed rate 32, CRP 13, 19,800 WBC from the aspirate
Other:
� Review of other/old records: The patient was here on 07/10/2023 and was transferred at that time after CT showed subarachnoid hemorrhage
� Clinical information was obtained by an independent historian: I spoke to the at bedside
� Prescriptions/Medications Considered but not given:
� Further testing considered but not performed:
RISK OF COMPLICATIONS AND/OR MORBIDITY OR MORTALITY OF PATIENT MANAGEMENT
� Social determinants of health affecting care: Lives at home, came in by ambulance
� Discussion with other providers: I discussed case with Dr. Guardado suspects he may have pseudogout however the patient has rather debilitating type of pain and has dramatic inability to move the left knee into flexion and
care for herself. I have asked Dr. Calloway for admission to the hospital.
� Escalation of care including admission/observation vs risk of discharge considered: The patient came in with rather significant distress. She is no longer on anticoagulation related to prior SAH managed at [place]. She gave
written informed consent for arthrocentesis which was performed. I drained about 30 mL of cloudy fluid. Pain still persist.
Past History
Past History
ED Past Medical History: Arrthythmia (Paroxysmal atrial fibrillation), Hypercholesterolemia, Hypothyroidism and Other (Crohn's disease colostomy in 1981 with total colectomy, thyroidectomy)
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
Social History
Tobacco: Former smoker (Quit cigarettes in 1988)
Alcohol: None
Drug: None
Personal:
Living: with family
Employment: Retired
Family History
Family History: Other (Noncontributory)
Phy Exam
Physical Exam
Physical Exam:
See HPI
Course
Orders/Labs/Results
Orders:
Orders
07/18/23 16:27
CR Knee - Left 4 Or More View* Urgent
Comment:
Reason For Exam: pain
07/18/23 17:29
HYDROmorphone [Dilaudid] 0.5 mg IV NOW STA
07/18/23 17:37
Basic Metabolic Panel Urgent
Body Fluid Cell Count Urgent
What is the Body Fluid: joint
Date Specimen was Collected: 07/18/23
Time Specimen was Collected: 17:32
Comment: with DIFF
Body Fluid Crystals Urgent
What is the Body Fluid: joint
Date Specimen was Collected: 07/18/23
Time Specimen was Collected: 17:32
CRP [C-Reactive Protein] Urgent
Complete Blood Count/With Diff Urgent
ESR [Erythrocyte Sed Rate] Urgent
Fluid Culture with Gram Stain Urgent
FELTON Source: Joint Fluid
Specimen Description:
Date Specimen was Collected: 07/18/23
Time Specimen was Collected: 17:32
07/18/23 18:25
Knee Immobilizer Left-Treatmen ONCE
07/18/23 19:22
Ketorolac [Toradol] 15 mg IV NOW STA
07/18/23 19:23
HYDROmorphone [Dilaudid] 0.5 mg IV NOW STA
07/18/23 21:05
Admit/Transfer Patient As Directed
Co-Sign Provider:
Level of Care: Observation services
Assign to:: Telemetry
Physician / Group: Brodie
Diagnosis: L Knee Pain
Reason for Telemetry: Arrhythmia
Date to Stop Telemetry: 07/21/23
Time to Stop Telemetry: 11:00
07/18/23 21:06
Code Status As Directed
Resuscitation Status: Full Code
07/18/23 21:10
Dexamethasone Sod Phosphate [Decadron] 10 mg IV NOW STA
HYDROmorphone [Dilaudid] 0.5 mg IV NOW STA
07/18/23 21:14
Dexamethasone Sod Phosphate [Decadron] 20 mg .ROUTE .STK-MED ONE
HYDROmorphone [Dilaudid] 0.5 mg .ROUTE .STK-MED ONE
07/18/23 22:00
Flush (0.9% Sodium Chloride) [Flush (Nss)] See Dose Instructions IV PER PROTOCOL
07/21/23 11:00
DC Protocol for Telemetry ONCE
Abnormal Lab Results
07/18/23
17:37
MCH 31.4 H pg
(27.0-31.0)
Absolute Neuts (auto) 7.4 H 10^3/uL
(1.4-6.5)
Absolute Monos (auto) 1.1 H 10^3/uL
(0.1-0.6)
Lymphocytes % 13.2 L %
(20.5-51.1)
Monocytes % 10.5 H %
(1.7-9.3)
ESR 32 H mm/hour
(0-20)
Sodium 133 L mmol/L
(135-145)
Creatinine 0.5 L mg/dL
(0.6-1.0)
C-Reactive Protein 13.40 H mg/L
(0.0-10.00)
07/18/23 17:37
07/18/23 17:37
Vital Signs
Initial and Last Documented VS:
Initial Vital Signs
BP
148/85
07/18/23 16:23
Last Documented Vital Signs
Temp Pulse Resp BP Pulse Ox
98.6 F 92 18 141/72 98
07/18/23 16:24 07/18/23 19:42 07/18/23 19:42 07/18/23 19:42 07/18/23 19:42
Procedures
Incision/Drainage/Joint Aspiration
Left Knee:
Anethesia: 1% Lidocaine with Epi
Preparation: cleaned with Hibiclens
Type of procedure: drain
How much fluid was obtained?: number in mls (30)
Fluid description: cloudy
Treatment: bandaid applied
Additional information:
30 mL of somewhat cloudy fluid was drained but not purulent, scant amount of blood also noted at end of procedure
*Critical Care Note
Total Time (30-74mins, 75-104mins- exclusive of procedures): Not Applicable
ED Attending Note
-
Portions of this chart may have been created with voice recognition software.� Occasional wrong word or��sound alike� substitutions may have occurred due to the inherent limitations of voice recognition software.
Discharge Plan
Departure
Patient Disposition: Admit
Date of Disposition: 07/18/23
Time of Disposition: 20:03
Presentation/result/management discussed w/ accepting MD/DO: Hospitalist
Patient with high blood pressure during this ER visit?: Yes
Discharge Problem:
Effusion of left knee
Prescriptions:
No Action
levothyroxine 150 MCG tablet
150 mcg PO DAILY
multivitamin [Multi-Day] 1 EACH tablet
1 tab PO DAILY
atorvastatin 10 MG tablet
10 mg PO HS Qty: 30 3RF
Eliquis 5 MG tablet
5 mg PO BID Qty: 60 0RF
Hold Instructions: Resume on 04/19/23. Hold therapeutic anticoagulation, Eliquis, for approximately 72 hours postop. Okay to resume 04/16/2023.
celecoxib 200 mg Capsule
200 mg PO BID
anastrozole 1 mg Tablet
1 mg PO DAILY
esomeprazole magnesium 20 mg Capsule,Delayed Release(Dr/Ec)
20 mg PO BID
metoprolol succinate 25 MG tablet extended release 24 hr
50 mg PO DAILY
Referrals:
Jairo Lopez MD [Family Provider] -
Interventions
Interventions:
*Risk Screen - Suicide Last Done: 07/18/23 16:24
*General Assessment Last Done: 07/18/23 16:24
*Neglect/Abuse Screening Last Done: 07/18/23 16:24
ED- Fall Risk Assessment Last Done: 07/18/23 16:30
ED-Musculoskeletal Assessment Last Done: 07/18/23 16:30
Discharge Date and Time
Print Language: ZAMBIAN
[2023-07-18] MEDS: DILAUDID 0.5 MG IV ×3 (17:37→21:18)
[2023-07-18 17:59] LABS: % Basophils 0.5 % (0-2); % Immature Granulocytes 0.3 % (0-0.5); % Lymphocytes 13.2 % (20.5-51.1); % Monocytes 10.5 % (1.7-9.3); % Neutrophils 74.5 % (42.2-75.2); Absolute Basophils 0.1 10^3/uL (0-0.2); Absolute Eosinophils 0.1 10^3/uL (0-0.7); Absolute Lymphocytes 1.3 10^3/uL (1.2-3.4); Absolute Monocytes 1.1 10^3/uL (0.1-0.6); Absolute Neutrophils 7.4 10^3/uL (1.4-6.5); Hemoglobin 13.2 g/dL (12.0-16.0); Mean Corp Hgb Conc. 34.7 g/dL (33.0-37.0); Mean Corpuscular Hgb 31.4 pg (27.0-31.0); Mean Corpuscular Volume 90.5 fL (81.0-99.0); Mean Platelet Volume 9.5 fL (7.4-10.4); Nucleated Red Blood Cells % 0 %; Platelet Count 286 10^3/uL (130-400); Red Cell Dist. Width 13.6 % (11.5-14.5)
[2023-07-18 18:11] LABS: Blood Urea Nitrogen 17 mg/dl (7-17); Calcium 8.9 mg/dl (8.4-10.2); Carbon Dioxide 24 mmol/L (22-30); Chloride 103 mmol/L (98-107); Glucose 95 mg/dl (70-99); Sodium 133 mmol/L (135-145); eGFR > 60.00
[2023-07-18 18:13] LABS: Erythrocyte Sed Rate 32 mm/hour (0-20)
[2023-07-18] MEDS: TORADOL 15 MG IV (19:26)
[2023-07-18 19:29] LABS: Body Fluid Mononuclear 7.4 %; Body Fluid Polymorphonuclear 92.6 %
[2023-07-18 19:35] LABS: Body Fluid WBC 19800 /CUMM
[2023-07-18 19:40] LABS: Body Fluid Second Tech JK
--- NOTE | 2023-07-18 21:11 | HPS.HSE ---
Family Physician
-
Family Physician: Jairo Lopez
Chief Complaint
-
L Knee Pain
History of Present Illness
Patient is a 78y F with PMH significant for Crohn's disease s/p total colectomy, paroxysmal A-Fib and recent traumatic SAH who presents to ED complaining of left knee pain. Patient states that she was feeling well until around 11AM today when
she developed sudden onset of L knee pain. Patient states that the pain steadily became more severe and there was apparent swelling in the area of the knee. She quickly was unable to stand / ambulate due to the severe pain and EMS was called.
Patient was transported to the ED for further evaluation.
Patient denies any recent injury or trauma to the knee.
Patient was seen in the ED here on 07/09 following a trip and fall at home. Patient suffered significant trauma at that time including laceration to the dorsum of the R hand and subarachnoid hemorrhage after striking her chin on the floor. Patient
was transported to [facility] for further evaluation at that time. She states that no intervention was performed. She was monitored x 2 days and then released. She remains off of ASA, Eliquis and Celebrex at this time.
Patient has persistent face / head pain following that initial trauma - but no new or worsening headache, weakness, paresthesias, etc.
Medical History
Past Medical History
Past Medical History: Reports Other
Additional Past Medical History:
Paroxysmal Atrial Fibrillation
Left Atrial Myxoma
Hypertension
Crohn's Disease
Breast Cancer (lumpectomy and XRT)
Hypothyroidism
Obesity
Traumatic SAH (06/2023)
Past Surgical History: Reports Other
Additional Past Surgical History:
Total Colectomy / End Colostomy
Parastomal Hernia / Repair with Mesh (x 2)
Atrial Myxoma Resection
Thyroidectomy
Lumpectomy
Social History
Tobacco: Former Smoker (Quit smoking 35y ago. Approx 20 pack years total use.)
Alcohol: Occasional (Rarely.)
Drug: None
Personal:
Living: With Family
Family History
Family History: Other (Multiple female family members with breast cancer.)
Allergies / Home Medications
Allergies reflects when Allergies were last updated in [employer].
Home Medications with original date entered in [employer]
Allergy/Medication List:
Allergies
Allergy/AdvReac Type Severity Reaction Status Date / Time
Penicillins Allergy Rash Verified 07/18/23 16:24
vancomycin Allergy Unknown Verified 07/18/23 16:24
Home Medications
levothyroxine 150 mcg tablet 150 mcg PO DAILY Thyroid 08/07/15
multivitamin (Multi-Day tablet) 1 tab PO DAILY Supplement 08/26/15
atorvastatin 10 mg tablet 10 mg PO HS ##30 09/07/15
apixaban 5 mg tablet (Eliquis) 5 mg PO BID #60 tabs 03/03/18
anastrozole 1 mg tablet 1 mg PO DAILY Hormonal Agent 04/13/23
celecoxib 200 mg capsule 200 mg PO BID Pain 04/13/23
esomeprazole magnesium 20 mg capsule,delayed release 20 mg PO BID Gastrointestinal Issue 04/13/23
metoprolol succinate 25 mg tablet,extended release 24 hr 50 mg PO DAILY Blood Pressure 04/13/23
Review of Systems
-
History Source: Patient
A 12 point ROS was completed and negative except as noted: Yes
Constitutional: Denies Fever or Chills
EENT: Denies Sore Throat
Respiratory: Denies Cough or Trouble Breathing
Cardiac: Denies Chest Pain or Palpitations
Abdomen/GI: Denies Abdominal Pain, Nausea, Vomiting or Diarrhea
: Denies Dysuria, Frequency or Flank Pain
Musculoskeletal: Reports Joint Pain and Joint Swelling
Skin: Reports Other (Bruising / tenderness.)
Neurological: Denies Dizzy, Headache, Weakness or Numbness
Psych: Denies Depression or Anxiety
Physical Exam
Vital Signs
Vital Signs
Temp Pulse Resp BP Pulse Ox
98.6 F 92 18 141/72 98
07/18/23 16:24 07/18/23 19:42 07/18/23 19:42 07/18/23 19:42 07/18/23 19:42
Physical Exam
General: Other (78y F in mild distres due to L knee pain.)
HEENT: Other (Scattered facial ecchymoses about bilateral eyes, mouth and chin.)
Respiratory: Clear; No Wheezes, Rales or Rhonchi
Cardiac: S1/S2 and Regular Rhythm; No Murmur
GI: Non Tender, Non Distended, Normal Bowel Sounds and Other (Obese, L sided ostomy intact with small amount of stool in device.)
Musculoskeletal: No Clubbing, No Cyanosis and Other (L knee with noted effusion on exam. Exquisite tenderness. No overlying erythema, skin breakdown, etc.)
Neuro: AO x 3
Laboratory Results
-
07/18/23 17:37
07/18/23 17:37
Impression/Plan
-
A/P: Patient is a 78y F with PMH significant for hypertension, Crohn's disease, A-Fib and recent traumatic SAH who presents to ED complaining of left knee pain.
Left Knee Pain / Effusion
- Observe overnight for further evaluation and treatment.
- Patient with abrupt onset of severe pain.
- Knee drained in the ED and fluid results noted,. No crystals seen.
- ? Pseudogout based on history alone.
- IV steroids x 1 dose now and prednisone daily.
- Ortho evaluation in the AM for additional recommendations.
- Continue efforts at pain control, immobilizer in place. PT / OT, etc.
- Avoid NSAIDs given recent trauma / SAH.
s/p Traumatic Subarachnoid Hemorrhage
- Fall on 07/09 with resultant tiny SAH (L frontal 3mm)
- Remain off of ASA, Eliquis, NSAIDs for now.
- Continue BP control with goal of normotension.
Paroxysmal Atrial Fibrillation
- Stable. Continue metoprolol.
- Continue to hold Eliquis as noted above.
Hypothyroidism
- Stable. Continue T4 supplementation.
Crohn's Disease
- s/p total colectomy / end-ileostomy in her youth.
- Two parastomal hernias in the past requiring surgery / hernia repair(s) with mesh.
- Stoma functioning well at present.
Breast Cancer
- s/p lumpectomy and XRT.
- Continue anastrazole daily.
Obesity due to excess calories
- Affects all aspects of care.
- Encourage healthy diet / activity with goal of weight loss.
DVT Prophylaxis: foot pumps
Code Status: Full
[2023-07-18] MEDS: DECADRON 10 MG IV (21:18)
--- NOTE | 2023-07-18 23:00 | PTCARENOTE ---
Pt transferred from ED. Pt AAOX3, VSS, able to make needs known, left knee immobilizer. Pt oriented to unit, call baldwin within reach. Will continue with current plan.
[2023-07-19] MEDS: DILAUDID 0.5 MG IV (00:26)
[2023-07-19 03:17] VITALS: BP 147/82
[2023-07-19] MEDS: ROXICODONE 5 MG PO ×2 (04:00→08:20)
[2023-07-19] MEDS: SYNTHROID 150 MCG PO (04:02)
[2023-07-19 06:00] VITALS: BMI 36.8
[2023-07-19 06:24] LABS: Hematocrit 38.9 % (37.0-47.0); Hemoglobin 13.3 g/dL (12.0-16.0); Mean Corp Hgb Conc. 34.2 g/dL (33.0-37.0); Mean Corpuscular Hgb 31.3 pg (27.0-31.0); Mean Corpuscular Volume 91.5 fL (81.0-99.0); Mean Platelet Volume 9.7 fL (7.4-10.4); Platelet Count 301 10^3/uL (130-400); Red Blood Cell Count 4.25 10^6/uL (4.20-5.40); Red Cell Dist. Width 13.3 % (11.5-14.5); White Blood Cell Count 8.2 10^3/uL (4.8-10.8)
[2023-07-19 06:45] LABS: Blood Urea Nitrogen 18 mg/dl (7-17); Calcium 8.7 mg/dl (8.4-10.2); Carbon Dioxide 23 mmol/L (22-30); Chloride 105 mmol/L (98-107); Estimated Creatinine Clearance 83 ml/min; Glucose 150 mg/dl (70-99); Potassium 4.2 mmol/L (3.5-5.1); Sodium 132 mmol/L (135-145); eGFR > 60.00
[2023-07-19 07:10] VITALS: BP 125/46
--- NOTE | 2023-07-19 07:50 | CON.ORTHO ---
Consultation
-
Date/Time Consultation Requested: 07/18/23
Date/Time Consultation Performed: 07/19/23 @7:30am
Requesting Provider: Chidi Clarke
Performing Provider: Jelena Burrows PA-C for Valeriano Mcmahon MD
Reason for Consultation: left knee pain
Consultation - Orthopedics
History
HPI: 78yo female presents to [facility] for evaluation for left knee pain. She states that yesterday afternoon she was sitting watching TV when she began to have pain in her knee. The pain worsened and she was unable to bear any weight or move
the knee. She called EMS who brought her to the ER for evaluation. She denies any recent injury. She did have a fall about two weeks ago where she sustained a SAH. She was treated at [facility] for this. At that time, she had some minor left
knee pain that seemed to improve until yesterday. Her knee was aspirated in the ER and she was given decadron. This morning, she reports that her pain is improved, however she still endorses discomfort to the touch and with motion.
PAST MEDICAL HISTORY: Afib, left atrial myxoma, HTN, Crohn's disease, breast cancer, hypothyroid, obesity, traumatic SAH June 2023
PAST SURGICAL HISTORY: total colectomy/end colostomy, parastomal hernia repair x2, atrial myxoma resection, thyroidectomy, lumpectomy, cholecystectomy
SOCIAL HISTORY: former smoker. denies alcohol. lives at home with her
FAMILY HISTORY: Noncontributory
REVIEW OF SYSTEMS: 12 point review of systems obtained and negative except those mentioned in the HPI
Allergies / Home Medications
Allergy/AdvReac Type Severity Reaction Status Date / Time
Penicillins Allergy Rash Verified 07/18/23 16:24
vancomycin Allergy Unknown Verified 07/18/23 16:24
�Medication �Instructions �Recorded
levothyroxine 150 mcg tablet 150 mcg PO DAILY Thyroid 08/07/15
multivitamin (Multi-Day tablet) 1 tab PO DAILY Supplement 08/26/15
atorvastatin 10 mg tablet 10 mg PO HS ##30 09/07/15
apixaban 5 mg tablet (Eliquis) 5 mg PO BID #60 tabs 03/03/18
anastrozole 1 mg tablet 1 mg PO DAILY Hormonal Agent 04/13/23
celecoxib 200 mg capsule 200 mg PO BID Pain 04/13/23
esomeprazole magnesium 20 mg 20 mg PO BID Gastrointestinal Issue 04/13/23
capsule,delayed release
metoprolol succinate 25 mg 50 mg PO DAILY Blood Pressure 04/13/23
tablet,extended release 24 hr
Vital Signs / Lab Results
Temp Pulse Resp BP Pulse Ox
98.2 F 107 17 147/82 92
07/19/23 03:17 07/19/23 03:17 07/19/23 03:17 07/19/23 03:17 07/19/23 03:17
07/19/23 05:42
07/19/23 05:42
ESR: 32
CRP: 13.4
LEFT KNEE ASPIRATION:
30mL cloudy fluid aspirated in ER. WBC 42834, no crystals, gram stain/culture pending
RADIOGRAPHIC FINDINGS:
Xray left knee with tricompartmental joint space narrowing. No fractures or dislocations. Moderate suprapatellar joint effusion.
PHYSICAL EXAM:
General: no acute distress
HEENT: Scattered resolving ecchymosis to face from prior fall. Sclera anicteric. Normal hearing
Heart: No JVD
Lungs: Normal work of breathing on room air
MSK: Focused exam of left knee reveals skin intact. There is a band aid at the site of aspiration. No erythema. Trace effusion. +TTP to lateral joint line, nontender to remainder of knee. ROM 0-80 with reported discomfort. All ligaments appear
stable. Calf soft and nontender. NVI distally
Assessment / Plan
ASSESSMENT: 78yo female admitted to [facility] with left knee pain
PLAN: Ms. Mendez was admitted to last evening for left knee pain. She reports improvement this morning though still has some discomfort with movement. Left knee was aspirated in the ER last night for 30mL cloudy fluid. Low suspicion for septic
arthritis. More likely dealing with possible pseudogout vs osteoarthritis flare. Fluid culture and gram stain are pending, will continue to follow. Patient may be weight bearing as tolerated to the left leg. She may benefit from a PT evaluation. She
may use the knee immobilizer as needed for comfort. Continue with prednisone and pain medications as needed. Apply ice as needed. Will continue to follow along.
[2023-07-19] MEDS: DELTASONE 40 MG PO (08:17)
[2023-07-19] MEDS: COLACE 100 MG PO (08:18)
[2023-07-19] MEDS: PROTONIX 40 MG PO (08:18)
[2023-07-19] MEDS: TOPROL XL 50 MG PO (08:18)
[2023-07-19] MEDS: ARIMIDEX 1 MG PO (08:18)
[2023-07-19] MEDS: TYLENOL 1000 MG PO (08:18)
[2023-07-19 09:15] VITALS: BP 146/94; PULSE 60
[2023-07-19 10:29] VITALS: BP 146/94
--- NOTE | 2023-07-19 11:11 | WOUNDNOTE ---
STEPHANIE RN NOTE: Asked to see patient for ostomy needs, nurse Murray reports patient is independent with care. Spoke to patient, she is using flat one piece, no issues with leakage or skin damage and confirmed independent with care. Stoma pink, can use 2
3/4' wafer and pouch if needs supplies. Nurse Murray made aware and where to find order codes for SPD on wound cart. Will sign off unless needed.
[2023-07-19 11:17] VITALS: BP 119/78
--- NOTE | 2023-07-19 15:04 | CM ---
Addendum entered by Batsheva Elias 07/19/23 15:19:
Per patient she has a commode at home.
Original Note:
Patient seen bedside.
IA completed.
SOLORZANO form completed.
patient lives with spouse, daughter, and grandsons.
patient lives in a 1 story home with 1 step to enter.
Patient independent prior to admission without assistive devices.
Patient with multiple concerns re hospitalization and stated she was goint o elevate the complaints.
CM sat and talked with patient for approx 20 minutes and offered patient option to speak with risk management.
PT/OT recommending VN.
Patient known to [facility], referral sent and TC to Ginny.
OT recommending commode, TT to MD for script.
Spouse will transport patient home.
PCP: Dr Ochoa
Pharmacy: [facility]
Plan: home with [facility]
[2023-07-19 15:10] VITALS: BP 148/70
--- NOTE | 2023-07-19 15:21 | CM ---
Addendum entered by Batsheva Elias 07/19/23 15:22:
Per patient she already has a commode.
Original Note:
Patient seen bedside.
IA completed.
SOLORZ[employer]O form completed.
patient lives with spouse, daughter, and grandsons.
patient lives in a 1 story home with 1 step to enter.
Patient independent prior to admission without assistive devices.
Patient with multiple concerns re hospitalization and stated she was going to elevate the complaints.
CM sat and talked with patient for approx 20 minutes and offered patient option to speak with the patient advocate.
PT/OT recommending VN.
Patient known to [facility], referral sent and TC to Ginny.
OT recommending commode, TT to for script.
Spouse will transport patient home.
PCP: Dr Ochoa
Pharmacy: [facility]
Plan: home with [facility]
--- NOTE | 2023-07-19 15:34 | PTCARENOTE ---
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 Instructions printed. Patient now seeing Patient advocate and waiting for to come to the floor. Offer patient to take her to d/c lounge with paper scrubs. Patient states that her has
dementia and wont be able to following instructions.
--- NOTE | 2023-07-19 21:00 | W.DCSUMMARY ---
Addendum entered and electronically signed by Nickolas Castellon MD 07/19/23 22:01:
Attending Addendum:
Read reviewed and agree. See same day progress note for additional details.
Pawel Castellon MD
Original Note:
Documented by User: Joseph Aguilar MD, Resident 07/19/23 21:21
Discharge Summary
Discharge Data
Date of Admission: 07/18/23
Date of Discharge: 07/19/23
-
Pending Results: Yes
Additional Pending Results:
Left knee joint fluid culture and Gram stain
Hospital Course
Patient is a 78-year-old female with past medical history of chronic disease s/p total colectomy, paroxysmal A-Fib, and recent traumatic SAH due to home fall 07/10/2023 who presented to on 07/18/2023 with acute left-sided knee pain and swelling.
Patient reports no knee pain after the fall but was transferred to [facility]. However, no intervention was performed after 2 days monitoring. On presentation, patient reports an acute knee pain that started 4 hours prior to presentation.
She denied any new trauma but reported steady increase in the severity of the knee pain and swelling.� While in the ED, the left knee was aspirated with 13 mL cloudy fluid drained. She was treated with 1 dose of IV steroids and prednisolone daily.
She was also given some pain medications and immobilizer. Patient was evaluated in the hospital by orthopedic surgical team on 07/19/2023 with reported improvement of knee pain. Fluid culture and Gram stain sent by the ED doctor was still pending
but patient continued to be agitated and stated that she wants to go home. Patient reported that she is able to bear weight on the left knee and is currently feeling better. Patient was discharged on immobilizer for comfort during sleep and
continued on prednisolone and pain medications as needed. Patient was also advised to apply ice as needed. Patient is now discharged to home with visiting nurse. Her PCP Dr. Jairo Lopez was also consulted and is aware of patient's
presentation. Patient to follow-up with Dr. Lopez as scheduled.
Discharge Plan
-
Patient Disposition: Home with Home Care
Discharge Diagnosis/Procedures: Osteoarthritis flare
Condition: Good
Diet: Regular
Activity: As tolerated
Driving Restrictions: As prior to admission
Other Services: VN
Referrals:
Jairo Lopez MD [Family Provider] -
Additional Discharge Medication Instructions: Continue home medications as precribed.
Prescriptions:
Continued
levothyroxine 150 MCG tablet
150 mcg PO DAILY
multivitamin [Multi-Day] 1 EACH tablet
1 tab PO DAILY
atorvastatin 10 MG tablet
10 mg PO HS Qty: 30 3RF
Eliquis 5 MG tablet
5 mg PO BID Qty: 60 0RF
Hold Instructions: Resume on 04/19/23. Hold therapeutic anticoagulation, Eliquis, for approximately 72 hours postop. Okay to resume 04/16/2023.
celecoxib 200 mg Capsule
200 mg PO BID
esomeprazole magnesium 20 mg Capsule,Delayed Release(Dr/Ec)
20 mg PO BID
metoprolol succinate 25 MG tablet extended release 24 hr
50 mg PO DAILY
No Action
letrozole 2.5 mg Tablet
1 PO
Patient Comments:
Patient unsure of dose but states that she takes it once daily
Discharge Orders:
Discharge Patient (As Directed); Ordered 07/19/23
Ordered By: Joseph Aguilar
Discharge Date and Time
Discharge Date/Time: 07/19/23 16:03
Print Language: CITIZEN [place]

Documented by User: Nickolas Castellon MD 07/19/23 21:49
Discharge Summary
Discharge Data
Date of Admission: 07/18/23
Date of Discharge: 07/19/23
Discharge Plan
-
Patient Disposition: Home with Home Care
Discharge Diagnosis/Procedures: Osteoarthritis flare
Condition: Good
Diet: Regular
Activity: As tolerated
Driving Restrictions: As prior to admission
Other Services: VN
Referrals:
Jairo Lopez MD [Family Provider] -
Additional Discharge Medication Instructions: Continue home medications as precribed.
Prescriptions:
Continued
levothyroxine 150 MCG tablet
150 mcg PO DAILY
multivitamin [Multi-Day] 1 EACH tablet
1 tab PO DAILY
atorvastatin 10 MG tablet
10 mg PO HS Qty: 30 3RF
Eliquis 5 MG tablet
5 mg PO BID Qty: 60 0RF
Hold Instructions: Resume on 04/19/23. Hold therapeutic anticoagulation, Eliquis, for approximately 72 hours postop. Okay to resume 04/16/2023.
celecoxib 200 mg Capsule
200 mg PO BID
esomeprazole magnesium 20 mg Capsule,Delayed Release(Dr/Ec)
20 mg PO BID
metoprolol succinate 25 MG tablet extended release 24 hr
50 mg PO DAILY
No Action
letrozole 2.5 mg Tablet
1 PO
Patient Comments:
Patient unsure of dose but states that she takes it once daily
Discharge Orders:
Discharge Patient (As Directed); Ordered 07/19/23
Ordered By: Joseph Aguilar
Discharge Date and Time
Discharge Date/Time: 07/19/23 16:03
Print Language: CITIZEN OF [place]
--- NOTE | 2023-07-19 21:21 | W.PN.HOSP.TC ---
Addendum entered and electronically signed by Nickolas Castellon MD 07/19/23 22:00:
I saw and evaluated the patient. I reviewed the resident�s note and agree with findings and plan as documented in the resident�s note. left knee pain much improved able to bear weight. Wants to go home. Full 12 point ROS reviewed and negative except
as documented Exam: gen NAD heart RRR lungs clear head- face periorbital orbital bruising abd soft LE - left knee swelling prepatellar effusion Plan:
# Left Knee Effusion/pain- likely arthritic vs pseudogout s/p joint tap- fluid analysis not consistent with septic arthritis cont pain control WBAT, RICE, antiinflammatories knee immobilizer on ambulation f/u PCP NG on fluid culture/gram just wbcs
# Recent SAH- fall precautions cont current meds
Dispo DC home
Time spent coordinating care, review of plan of care with resident, review of records, med rec, consults, notes, labs, rads, d/w nursing, PCP Dr. Lopez updated � 36 mins
Original Note:
Today's Communication/Plan
-
Weightbearing as tolerated
Immobilizer for comfort especially at bedtime
Discharge planning
Assessment / Plan
Assessment / Plan
Patient is a 78-year-old female with recent fall s/p traumatic SAH who presented to ED with left knee pain and swelling. Patient was recently seen in the ED 07/09 after a home fall however she presented yesterday with acute onsets of severe left
knee pain. Patient was treated with pain medications, steroids and knee immobilizer and is currently feeling better and ready to go home.
Left Knee Pain with effusion:
-Acute pain likely due to pseudogout vs osteoarthritis flare.
-Patient was observed overnight and treated with pain medications, IV steroids, daily prednisolone, and knee immobilizer.
-Left knee drained in the ED and aspirate culture/Gram stain pending, follow-up with results.
-Ortho evaluated, recs appreciated.
-Continue pain medications and immobilizer.
-Bear weight as tolerated
-Apply ice as needed, may apply heat.
-PT/OT.
-Avoid NSAIDs given recent traumatic subarachnoid hemorrhage.
s/p Traumatic Subarachnoid Hemorrhage
-Fall on 07/09 with resultant tiny SAH (L frontal 3mm)
-Avoid Eliquis, ASA, and NSAIDs given recent SAH.
-Continue BP control with goal of normotension.
Paroxysmal Atrial Fibrillation
-Stable.
-Continue metoprolol.
Hypothyroidism
-Controlled on T4 supplementation.
-No changes made.
Crohn's Disease
-s/p total colectomy / end-ileostomy in her youth.
-Two parastomal hernias in the past requiring surgery / hernia repair(s) with mesh.
-Stoma functioning well at present.
Breast Cancer
-s/p lumpectomy and XRT.
-Continue anastrazole daily.
Obesity due to excess calories
-Encourage healthy diet.
-Activity with goal of weight loss.
DVT Prophylaxis: foot pumps
Code Status: Full
Anticipated Discharge: Today
Subjective/Interval History
-
Date of Service: July 19, 2023
Objective Data
-
Vital Signs:
Vital Signs
Temp Pulse Resp BP Pulse Ox
98 F 104 18 148/70 96
07/19/23 15:10 07/19/23 15:10 07/19/23 15:10 07/19/23 15:10 07/19/23 15:10
I&O
07/18/23 07/19/23 07/20/23
06:59 06:59 06:59
Intake Total 0 / 0 300 / 300
Balance 0 / 0 300 / 300
Review of Systems
-
History Source: Patient
All other systems: Not reviewed unless documented
Constitutional: Reports No Symptoms; Denies Fever
EENT: Reports No Symptoms Reported
Respiratory: Reports No Symptoms
Cardiac: Reports No Symptoms; Denies Chest Pain or Palpitations
Abdomen/GI: Reports No Symptoms; Denies Abdominal Pain
Genitourinary: Reports No Symptoms
Musculoskeletal: Reports Joint Pain (Improving left knee pain)
Skin: Reports No Symptoms
Neuro: Reports No Symptoms; Denies Headache or Weakness
Physical Exam
-
General: Well Developed and No Apparent Distress
HEENT: Normocephalic, Atraumatic and Moist Mucous Membranes
Respiratory: Clear to Auscultation
Cardiac: Regular Rhythm and S1/S2; Negative Murmur, Rub or Gallop
GI: Soft, Nontender, Nondistended and Normal Bowel Sounds; Negative Organomegaly
Rectal: Deferred by Provider
Musculoskeletal: No Clubbing, No Cyanosis and Other (Left knee edema)
Skin: Warm and Rash (Facial bruises from previous fall)
Neuro: Awake, Alert, Oriented, AO x 3 and Nonfocal/Grossly Intact
Psych: Calm
Data Reviewed
-
Diagnostic Radiology: Image personally visualized and interpreted, Report Reviewed by me and Discussed with Physician
Labs: Labs Reviewed by me and Discussed with Physician
Old Records: Reviewed
== END 2023-07-19 16:03 | disposition home health service (06) ==
LOC: 4 WEST ACU 22:29
PROVIDERS: Student in an Organized Health Care Education/Training Program; ADMITTING PHYSICIAN Hospitalist; ATTENDING PHYSICIAN Family Medicine; CONSULT PHYSICIAN Orthopaedic Surgery; EMERGENCY PHYSICIAN Emergency Medicine; FAMILY PHYSICIAN Family Medicine
DX: M17.12 Unilateral primary osteoarthritis, left knee (principal); M25.562 Pain in left knee; M25.462 Effusion, left knee; I48.0 Paroxysmal atrial fibrillation; E78.00 Pure hypercholesterolemia, unspecified; E66.09 Other obesity due to excess calories; I10 Essential (primary) hypertension; S06.6XAD Traumatic subarachnoid hemorrhage with loss of consciousness status unknown, subsequent encounter; W19.XXXD Unspecified fall, subsequent encounter; E89.0 Postprocedural hypothyroidism; Z87.891 Personal history of nicotine dependence; Z79.890 Hormone replacement therapy; K50.90 Crohn's disease, unspecified, without complications; Z90.49 Acquired absence of other specified parts of digestive tract; Z86.79 Personal history of other diseases of the circulatory system; Z85.3 Personal history of malignant neoplasm of breast; Z92.3 Personal history of irradiation; Z68.36 Body mass index [BMI] 36.0-36.9, adult; Z86.018 Personal history of other benign neoplasm; Z80.3 Family history of malignant neoplasm of breast; Z88.0 Allergy status to penicillin; Z79.811 Long term (current) use of aromatase inhibitors; Z79.1 Long term (current) use of non-steroidal anti-inflammatories (NSAID)
CPT/HCPCS: 20610; 73564; 80048; 85025; 85027; 85652; 86140; 87015; 87070; 87205; 89051; 89060; 96374; 96375; 96376; 97163; 97166; 99285; G0378

== ENCOUNTER → 2024-01-03 14:22 | Outpatient (REF) | payer OTHER, SELFPAY | LOC: RCS 14:22 | PROVIDERS: ATTENDING PHYSICIAN Internal Medicine Cardiovascular Disease; FAMILY PHYSICIAN Family Medicine | DX: I48.0 Paroxysmal atrial fibrillation (principal); I77.810 Thoracic aortic ectasia; I10 Essential (primary) hypertension | CPT/HCPCS: 93306 ==

== ENCOUNTER → 2024-01-21 09:49 | Day surgery (SDC) | payer OTHER, SELFPAY ==
--- NOTE | 2024-01-21 11:26 | ITS.CL.CARDI ---
Hand Engraver - Cardioversion
Cardioversion
Procedure Report:
Procedure: Direct current electrical cardioversion
Pre-operative diagnosis: Persistent atrial fibrillation
Post-operative diagnosis: Persistent atrial fibrillation status post DC cardioversion to sinus rhythm
Anesthesia: MAC
Attending Physician: Yadiel Bhandari MD
Procedure Description: The patient was brought to the electrophysiology laboratory in the fasting state. Adherence to anticoagulation regimen was confirmed. Informed consent was obtained from the patient prior to the start of the procedure.
Electrodes were placed on the patient and connected to an external defibrillator. Monitoring of blood pressure, ECG tracings, and pulse oximetry was initiated. The pads were applied to the patient in the anterior and posterior positions. The patient
was sedated by the anesthesiologist. A 200 joule biphasic synchronized shock was delivered to the patient under MAC anesthesia. Sinus rhythm was successfully restored. The patient recovered uneventfully from MAC anesthesia. There were no immediate
post-procedure complications. The patient left the lab in good condition. The attending physician was present throughout the entire procedure.
Impression: Successful direct current cardioversion with church of sinus rhythm after one 200 joule biphasic synchronized shock.
== END ==
LOC: CATH 09:49
PROVIDERS: ATTENDING PHYSICIAN Internal Medicine Cardiovascular Disease
DX: I48.19 Other persistent atrial fibrillation (principal); D15.1 Benign neoplasm of heart; I10 Essential (primary) hypertension; E03.9 Hypothyroidism, unspecified; K50.90 Crohn's disease, unspecified, without complications; Z85.3 Personal history of malignant neoplasm of breast; Z87.891 Personal history of nicotine dependence; Z79.01 Long term (current) use of anticoagulants; Z79.82 Long term (current) use of aspirin
CPT/HCPCS: 92960; 93005

== ENCOUNTER 2024-01-25 05:57 | Emergency (ER) | payer OTHER, SELFPAY ==
[2024-01-25 06:05] VITALS: BP 154/79; BMI 41.0
[2024-01-25 06:07] VITALS: BP 154/79
--- NOTE | 2024-01-25 06:15 | ED.GENMED ---
History of Present Illness
General
Chief Complaint: Breathing Problem
Source: patient, records and ambulance crew
Exam Limitations: none
Time Seen by Provider: 01/25/24 06:06
Nursing documentation reviewed up to this point in time: agreed with
History of Present Illness
History of Present Illness:
78-year-old female with a past medical history of hypertension, hyperlipidemia, Crohn's disease status post colon resection and colostomy, atrial fibrillation on Eliquis who presents to the emergency room from home for evaluation of shortness of
breath. Patient notably had scheduled cardioversion for atrial fibrillation with Dr. Fragoso on 01/21/2024. She says she was in her normal state of health last night before going to bed. She says she woke up this morning around 4:30 AM to go to
the bathroom. She states that she felt mildly short of breath and decided to come to the emergency to be evaluated. She describes feeling as though she 'cannot get a deep breath.' She denies any chest pain. She denies any coughing or URI
symptoms recently. Has not had a fever. Has not noticed swelling or pain in the legs. No GI issues. Denies any other complaints today. Reports compliance with all medications.
Past History
Past History
ED Past Medical History: Arrthythmia (Paroxysmal atrial fibrillation), Hypercholesterolemia, Hypothyroidism and Other (Crohn's disease colostomy in 1981 with total colectomy, thyroidectomy)
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
Social History
Tobacco: Former smoker (Quit cigarettes in 1988)
Alcohol: None
Drug: None
Personal:
Living: with family
Employment: Retired
Family History
Family History: Other (Noncontributory)
Review of Systems
Review of Systems
All Other Systems: ROS reviewed and negative except as documented in HPI and ROS
Constitutional: Denies fever or chills
EENT: Denies sore throat or runny nose
Respiratory: Reports trouble breathing; Denies cough
Cardiac: Denies chest pain, palpitations or syncope
ABD/GI: Denies abdominal pain, nausea, vomiting or diarrhea
: Denies flank pain
Musculoskeletal: Denies edema, neck pain or back pain
Neurological: Denies dizzy or headache
Phy Exam
Physical Exam
Physical Exam:
General: Awake, alert, oriented x3; no acute distress
Head: Normocephalic, atraumatic
Eyes: Conjunctiva normal
Throat: Airway intact, handling secretions
Neck: Trachea midline, supple without meningismus
Lungs: Clear to auscultation bilaterally, no wheezing, rales, rhonchi
Heart: Regular rate and rhythm, no murmurs, gallops, or rubs
Abd: Soft, non distended, nontender; left lower abdominal colostomy in place with good output
Neuro: No gross deficits
Skin: no rash
Extremities: No edema in extremities, equal pulses in all extremities
Scores
Heart Failure Risk
Heart Failure Risk Score: Not Applicable
Heart Score for Chest Pain Patients
STEMI patient?: Not applicable
Withdrawal Assessment of Alcohol
Withdrawal Assessment Completed?: Not applicable
Course
Orders/Labs/Results
Orders:
Orders
01/25/24 06:09
Electrocardiogram (*1) Urgent
Reason for Study: Shortness of Breath
EKG- Treatment ONCE
01/25/24 06:14
CR Chest - 2 Views Urgent
Comment:
Reason For Exam: sob
01/25/24 06:24
COVID-19 Antigen Urgent
Source: Nasal Swab
Complete Blood Count/With Diff Urgent
Comprehensive Metabolic Panel Urgent
D-Dimer Urgent
NT-proBNP Urgent
PTT Urgent
Prothrombin Time Urgent
Troponin I Urgent
Comment: ADD ON
Influenza A+B Rapid Molecular Urgent
FELTON Source: Nasal Swab
Specimen Description:
01/25/24 09:03
Add On- LAB Urgent
Tests Added?: troponin
01/25/24 09:40
Procalcitonin Urgent
PCT Algorithmm Indication: Respiratory
Abnormal Lab Results
01/25/24
06:24
WBC 13.2 H 10^3/uL
(4.8-10.8)
RBC 3.78 L 10^6/uL
(4.20-5.40)
Hct 35.5 L %
(37.0-47.0)
MCH 31.7 H pg
(27.0-31.0)
Abs Immat Gran (auto) 0.1 H 10^3/uL
(0-0.05)
Absolute Neuts (auto) 10.6 H 10^3/uL
(1.4-6.5)
Absolute Lymphs (auto) 1.0 L 10^3/uL
(1.2-3.4)
Absolute Monos (auto) 1.3 H 10^3/uL
(0.1-0.6)
Immature Gran % 0.7 H %
(0-0.5)
Neutrophils % 80.6 H %
(42.2-75.2)
Lymphocytes % 7.6 L %
(20.5-51.1)
Monocytes % 9.6 H %
(1.7-9.3)
APTT 40.8 H Sec
(23.4-35.0)
BUN 26 H mg/dl
(7-17)
Alkaline Phosphatase 141 H U/L
(38-126)
01/25/24 06:24
01/25/24 06:24
Vital Signs
Initial and Last Documented VS:
Initial Vital Signs
Temp Pulse Resp BP Pulse Ox
37.3 C 81 20 154/79 96
01/25/24 06:05 01/25/24 06:05 01/25/24 06:05 01/25/24 06:05 01/25/24 06:05
Last Documented Vital Signs
Temp Pulse Resp BP Pulse Ox
37.3 C 71 21 133/56 92
01/25/24 06:05 01/25/24 09:45 01/25/24 09:45 01/25/24 10:00 01/25/24 09:45
MDM/Problems Addressed
Differential Diagnosis Includes:
Dysrhythmia, anemia, pneumonia, PE
MDM/Problems Addressed:
78-year-old female presents to the emergency department for evaluation of mild shortness of breath this morning status post recent cardioversion. Vitals and exam as above. Plan to place an IV check labs including a CBC and CMP, proBNP. Check a
D-dimer, coags. Check chest x-ray and EKG. Will monitor on telemetry and reassess after the above.
Labs reviewed: CBC did show slight leukocytosis to 13.2 of unclear clinical significance�she has no pneumonia on chest x-ray and we added a procalcitonin which was negative which go strongly against occult bacterial pneumonia. Her CMP shows no
clinically significant abnormalities. Troponin undetectable, proBNP essentially normal. Her D-dimer is negative. EKG shows sinus rhythm. Her vitals have been normal here after initial triage hypertension. She says her symptoms have resolved.
Possible that she had paroxysmal episode of A-fib that caused her symptoms, at this point very low suspicion for emergent pathology. Offered admission for observation but she feels comfortable with discharge home. Spoke about return precautions
all questions answered.
Chronic conditions affecting care:
Hypertension, hyperlipidemia, atrial fibrillation
*Radiology
Radiology exam reviewed: preliminary read by ED provider
*Pulse Oximetry
Patient hypoxic: no
*EKG
Interpreted by ED Provider?: Yes
Heart Rate: 72
Rate: normal
Rhythm: sinus
Dunbar: normal axis
Interval: first degree heart block
QRS Pattern: normal QRS
Ischemia: no ischemia
*Critical Care Note
Total Time (30-74mins, 75-104mins- exclusive of procedures): Not Applicable
Data Reviewed
Review of Other/Old Records Reveals: Labs and Records
Source: patient, records and ambulance crew
ED Attending Note
-
Portions of this chart may have been created with voice recognition software.� Occasional wrong word or��sound alike� substitutions may have occurred due to the inherent limitations of voice recognition software.
Discharge Plan
Departure
Patient Disposition: Home (Routine Discharge)
Date of Disposition: 01/25/24
Time of Disposition: 10:49
Patient with high blood pressure during this ER visit?: Yes
Discharge Problem:
Shortness of breath
Instructions: Shortness of Breath (Dyspnea) (DC)
Prescriptions:
No Action
levothyroxine 150 MCG tablet
150 mcg PO DAILY
multivitamin [Multi-Day] 1 EACH tablet
1 tab PO DAILY
atorvastatin 10 MG tablet
10 mg PO HS Qty: 30 3RF
Eliquis 5 MG tablet
5 mg PO BID Qty: 60 0RF
celecoxib 200 mg Capsule
200 mg PO BID
esomeprazole magnesium 20 mg Capsule,Delayed Release(Dr/Ec)
20 mg PO BID
metoprolol succinate 25 MG tablet extended release 24 hr
50 mg PO DAILY
letrozole 2.5 mg Tablet
2.5 mg PO DAILY
Patient Comments:
Patient unsure of dose but states that she takes it once daily
aspirin 81 mg Tablet
81 mg PO DAILY
albuterol 90 mcg/actuation Aerosol
90 mcg INHALATION PRN PRN (Reason: wheezing)
Trelegy Ellipta 100-62.5-25 mcg Blister With Device
1 inh INHALATION DAILY
Referrals:
Bagnick,Jairo F., MD [Family Provider] - Follow up in 5-7 days
Activity Restrictions/Additional Instructions:
Thank you for visiting the Emergency Department at [facility].
1. Please schedule a follow up appointment as directed. Call first thing tomorrow morning to make an appointment.
2. If indicated, please take your medications as instructed and indicated on discharge paperwork.
3. If any of your symptoms do not improve, or persist, or become more severe within 6-12 hours, please return to the emergency department for further care.
4. Please return to the emergency department if you develop a headache, neck pain/stiffness, fever greater than 100.4F, chest pain, shortness of breath, persistent nausea, vomiting, slurred speech, difficulty walking, numbness/tingling, weakness,
signs of infection or any other symptoms that are worrisome to you.
Please call [phone] if you have any questions.
Interventions
Interventions:
*Risk Screen - Suicide Last Done: 01/25/24 06:15
*General Assessment Last Done: 01/25/24 06:05
*Neglect/Abuse Screening Last Done: 01/25/24 06:05
ED- Fall Risk Assessment Last Done: 01/25/24 06:05
*ED COVID-19 Vaccine History Last Done: 01/25/24 06:16
ED- Cardiac Assessment Last Done: 01/25/24 06:17
ED- Pulmonary Assessment Last Done: 01/25/24 06:17
Discharge Date and Time
Print Language: [place]
[2024-01-25 06:37] LABS: % Basophils 0.4 % (0-2); % Eosinophils 1.1 % (0-6); % Immature Granulocytes 0.7 % (0-0.5); % Lymphocytes 7.6 % (20.5-51.1); % Monocytes 9.6 % (1.7-9.3); % Neutrophils 80.6 % (42.2-75.2); Absolute Basophils 0.1 10^3/uL (0-0.2); Absolute Eosinophils 0.1 10^3/uL (0-0.7); Absolute Immature Granulocytes 0.1 10^3/uL (0-0.05); Absolute Monocytes 1.3 10^3/uL (0.1-0.6); Absolute Neutrophils 10.6 10^3/uL (1.4-6.5); Hematocrit 35.5 % (37.0-47.0); Mean Corp Hgb Conc. 33.8 g/dL (33.0-37.0); Mean Corpuscular Hgb 31.7 pg (27.0-31.0); Mean Corpuscular Volume 93.9 fL (81.0-99.0); Mean Platelet Volume 9.7 fL (7.4-10.4); Nucleated Red Blood Cells % 0 %; Platelet Count 266 10^3/uL (130-400); Red Blood Cell Count 3.78 10^6/uL (4.20-5.40); Red Cell Dist. Width 13.3 % (11.5-14.5); White Blood Cell Count 13.2 10^3/uL (4.8-10.8)
[2024-01-25 06:48] LABS: ALT (SGPT) 24 U/L (0-35); AST (SGOT) 27 U/L (14-36); Albumin 4.2 g/dl (3.5-5.0); Alkaline Phosphatase 141 U/L (38-126); Blood Urea Nitrogen 26 mg/dl (7-17); Calcium 8.9 mg/dl (8.4-10.2); Carbon Dioxide 22 mmol/L (22-30); Chloride 105 mmol/L (98-107); Estimated Creatinine Clearance 88 ml/min; Glucose 99 mg/dl (70-99); INR 1.07; PT 14.5 Sec (11.4-14.6); Sodium 140 mmol/L (135-145); Total Bilirubin 1.2 mg/dl (0.2-1.3); Total Protein 6.7 g/dl (6.3-8.2); eGFR > 60.00
[2024-01-25 06:49] LABS: APTT 40.8 Sec (23.4-35.0)
[2024-01-25 06:50] LABS: COVID-19 Antigen Negative (Negative)
[2024-01-25 06:51] LABS: D-Dimer 0.39 ug/mlFEU (0.00-0.50)
[2024-01-25 06:57] LABS: NT-proBNP 302 pg/ml
[2024-01-25 07:12] VITALS: BP 177/85
[2024-01-25 08:00] VITALS: BP 148/69
[2024-01-25 09:12] VITALS: BP 156/73
[2024-01-25 10:00] VITALS: BP 133/56
[2024-01-25 10:01] LABS: Troponin I < 0.012 ng/ml
[2024-01-25 10:25] LABS: Procalcitonin < 0.05 ng/ml (0.0-0.25)
== END 2024-01-25 11:20 | disposition home or self-care (01) ==
LOC: EMR 05:57
PROVIDERS: EMERGENCY PHYSICIAN Emergency Medicine; FAMILY PHYSICIAN Family Medicine
DX: R06.02 Shortness of breath (principal); I10 Essential (primary) hypertension; E78.00 Pure hypercholesterolemia, unspecified; K50.90 Crohn's disease, unspecified, without complications; I48.0 Paroxysmal atrial fibrillation; Z79.01 Long term (current) use of anticoagulants; Z87.891 Personal history of nicotine dependence; Z90.49 Acquired absence of other specified parts of digestive tract; Z93.3 Colostomy status
CPT/HCPCS: 99283; 71046; 80053; 83880; 84145; 84484; 85025; 85379; 85610; 85730; 87502; 87811; 93005

== ENCOUNTER 2024-03-13 06:35 | Emergency (ER) | payer OTHER, SELFPAY ==
[2024-03-13 06:39] VITALS: BP 168/72
[2024-03-13 06:42] VITALS: BP 168/72; BMI 40.4
[2024-03-13 07:00] VITALS: BP 157/68
[2024-03-13 07:14] LABS: ALT (SGPT) 20 U/L (0-35); AST (SGOT) 24 U/L (14-36); Alkaline Phosphatase 151 U/L (38-126); Blood Urea Nitrogen 10 mg/dl (7-17); Calcium 8.7 mg/dl (8.4-10.2); Carbon Dioxide 24 mmol/L (22-30); Chloride 101 mmol/L (98-107); Estimated Creatinine Clearance 87 ml/min; Glucose 111 mg/dl (70-99); Lipase 53 U/L (23-300); Potassium 3.8 mmol/L (3.5-5.1); Sodium 134 mmol/L (135-145); Total Bilirubin 0.8 mg/dl (0.2-1.3); Total Protein 6.2 g/dl (6.3-8.2); eGFR > 60.00
[2024-03-13 07:15] LABS: % Basophils 0.5 % (0-2); % Eosinophils 1.4 % (0-6); % Immature Granulocytes 1.6 % (0-0.5); % Lymphocytes 10.1 % (20.5-51.1); % Monocytes 10.6 % (1.7-9.3); % Neutrophils 75.8 % (42.2-75.2); Absolute Basophils 0.1 10^3/uL (0-0.2); Absolute Eosinophils 0.2 10^3/uL (0-0.7); Absolute Immature Granulocytes 0.2 10^3/uL (0-0.05); Absolute Lymphocytes 1.1 10^3/uL (1.2-3.4); Absolute Monocytes 1.1 10^3/uL (0.1-0.6); Hematocrit 35.9 % (37.0-47.0); Hemoglobin 12.1 g/dL (12.0-16.0); Mean Corp Hgb Conc. 33.7 g/dL (33.0-37.0); Mean Corpuscular Hgb 31.2 pg (27.0-31.0); Mean Corpuscular Volume 92.5 fL (81.0-99.0); Mean Platelet Volume 10.3 fL (7.4-10.4); Nucleated Red Blood Cells % 0 %; Platelet Count 248 10^3/uL (130-400); Red Blood Cell Count 3.88 10^6/uL (4.20-5.40); Red Cell Dist. Width 13.4 % (11.5-14.5); White Blood Cell Count 10.5 10^3/uL (4.8-10.8)
[2024-03-13 07:37] LABS: COVID-19 Antigen Negative (Negative)
--- NOTE | 2024-03-13 07:50 | ED.GENMED ---
History of Present Illness
<Doroteo Domingo DO, Resident - Last Filed: 03/13/24 10:57>
General
Chief Complaint: Abdominal Symptoms
Source: patient and records
Time Seen by Provider: 03/13/24 07:02
History of Present Illness
History of Present Illness:
78-year-old female past medical history significant for paroxysmal atrial fibrillation on Eliquis, Crohn's disease status post rectum resection with ostomy, previous bowel obstruction, thyroidectomy, hernia repair x 2 and breast cancer status
postresection and presents for 1 day of severe nausea. Patient reports her nausea started last night, she did have 1 previous day of sinus infection-like symptoms, congestion, cough, runny nose. Patient denies fever, no chills, no chest pain.
Patient reports that she has been constipated lately, she also reports decreased output from her ostomy. Patient reports her last bowel movement was Wednesday, has passed gas, small amount since yesterday. Patient has an extensive abdominal surgical
history significant for rectum removal with ostomy creation, hernia repair x 2. Patient reports she had a small bowel obstruction previously, she reports this is not feel the exact same, but is similar. As for now patient reports she feels more
distended than normal, no focal abdominal pain but has a diffuse mild tenderness. Patient also reports severe nausea with no vomiting, she has not been eating or drinking much per her account recently. Of note, patient reports not taking her
Eliquis today or yesterday.
Past History
<Doroteo Domingo DO, Resident - Last Filed: 03/13/24 10:57>
Past History
ED Past Medical History: Arrthythmia (Paroxysmal atrial fibrillation), Hypercholesterolemia, Hypothyroidism and Other (Crohn's disease colostomy in 1981 with total colectomy, thyroidectomy)
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
Social History
Tobacco: Former smoker (Quit cigarettes in 1988)
Alcohol: None
Drug: None
Personal:
Living: with family
Employment: Retired
Family History
Family History: Other (Noncontributory)
Review of Systems
<Doroteo Domingo DO, Resident - Last Filed: 03/13/24 10:57>
Review of Systems
Constitutional: Reports no symptoms; Denies fever
EENT: Reports runny nose and other (Congestion)
Respiratory: Reports cough
Cardiac: Reports no symptoms
ABD/GI: Reports abdominal pain, nausea and constipated; Denies vomiting, diarrhea or bloody stools
Phy Exam
<Doroteo Domingo DO, Resident - Last Filed: 03/13/24 10:57>
General Physical Exam
General Presentation: well appearing and no apparent distress
Cardiovascular Exam
Cardiovascular Exam: no edema, no murmur and irregularly irregular
Pulmonary Exam
Pulmonary Exam: lungs clear, no respiratory distress, no crackles, no rhonchi and no wheezing
Gastrointestinal Exam
Gastrointestinal Exam: non tender, soft, distended, tympanitic and other (No rebound or guarding, abdomen nontender to deep and light palpation)
External Findings: colostomy
Neurological Exam
Neurological Exam: alert, oriented x3 and speech normal
Course
<Doroteo Domingo DO, Resident - Last Filed: 03/13/24 10:57>
Orders/Labs/Results
Orders:
Orders
03/13/24 06:52
COVID-19 Antigen Urgent
Source: Nasal Swab
Complete Blood Count/With Diff Urgent
Comprehensive Metabolic Panel Urgent
Lipase Urgent
Influenza A+B Rapid Molecular Urgent
[facility] Source: Nasal Swab
Specimen Description:
03/13/24 08:10
0.9% Sodium Chloride 1000 ml [Nss] 1,000 ml IV BOLUS
03/13/24 08:29
Iohexol [Omnipaque] See Protocol PO NOW STA
03/13/24 08:30
Electrocardiogram (*1) Urgent
Reason for Study: Atrial Fibrillation
EKG- Treatment ONCE
03/13/24 08:39
Obstruct Series W/PA Chest [CR Obstruct Series W/pa Chest] Urgent
Comment:
Reason For Exam: Nausea, decreased ostomy output. Rule out pSBO
03/13/24 08:42
Azithromycin [Zithromax] 500 mg PO NOW STA
Abnormal Lab Results
03/13/24
06:52
RBC 3.88 L 10^6/uL
(4.20-5.40)
Hct 35.9 L %
(37.0-47.0)
MCH 31.2 H pg
(27.0-31.0)
Abs Immat Gran (auto) 0.2 H 10^3/uL
(0-0.05)
Absolute Neuts (auto) 8.0 H 10^3/uL
(1.4-6.5)
Absolute Lymphs (auto) 1.1 L 10^3/uL
(1.2-3.4)
Absolute Monos (auto) 1.1 H 10^3/uL
(0.1-0.6)
Immature Gran % 1.6 H %
(0-0.5)
Neutrophils % 75.8 H %
(42.2-75.2)
Lymphocytes % 10.1 L %
(20.5-51.1)
Monocytes % 10.6 H %
(1.7-9.3)
Sodium 134 L mmol/L
(135-145)
Creatinine 0.5 L mg/dL
(0.6-1.0)
Glucose 111 H mg/dl
(70-99)
Alkaline Phosphatase 151 H U/L
(38-126)
Total Protein 6.2 L g/dl
(6.3-8.2)
03/13/24 06:52
03/13/24 06:52
Vital Signs
Initial and Last Documented VS:
Initial Vital Signs
BP
168/72
03/13/24 06:39
Last Documented Vital Signs
Temp Pulse Resp BP Pulse Ox
97.9 F 84 18 139/78 94
03/13/24 06:42 03/13/24 06:42 03/13/24 06:42 03/13/24 09:00 03/13/24 08:45
<Todd Jackson, DO - Last Filed: 03/13/24 08:59>
Orders/Labs/Results
Orders:
Orders
03/13/24 06:52
COVID-19 Antigen Urgent
Source: Nasal Swab
Complete Blood Count/With Diff Urgent
Comprehensive Metabolic Panel Urgent
Lipase Urgent
Influenza A+B Rapid Molecular Urgent
[place] Source: Nasal Swab
Specimen Description:
03/13/24 08:10
0.9% Sodium Chloride 1000 ml [Nss] 1,000 ml IV BOLUS
03/13/24 08:29
Iohexol [Omnipaque] See Protocol PO NOW STA
03/13/24 08:30
Electrocardiogram (*1) Urgent
Reason for Study: Atrial Fibrillation
EKG- Treatment ONCE
03/13/24 08:39
Obstruct Series W/PA Chest [CR Obstruct Series W/pa Chest] Urgent
Comment:
Reason For Exam: Nausea, decreased ostomy output. Rule out pSBO
03/13/24 08:42
Azithromycin [Zithromax] 500 mg PO NOW STA
Abnormal Lab Results
03/13/24
06:52
RBC 3.88 L 10^6/uL
(4.20-5.40)
Hct 35.9 L %
(37.0-47.0)
MCH 31.2 H pg
(27.0-31.0)
Abs Immat Gran (auto) 0.2 H 10^3/uL
(0-0.05)
Absolute Neuts (auto) 8.0 H 10^3/uL
(1.4-6.5)
Absolute Lymphs (auto) 1.1 L 10^3/uL
(1.2-3.4)
Absolute Monos (auto) 1.1 H 10^3/uL
(0.1-0.6)
Immature Gran % 1.6 H %
(0-0.5)
Neutrophils % 75.8 H %
(42.2-75.2)
Lymphocytes % 10.1 L %
(20.5-51.1)
Monocytes % 10.6 H %
(1.7-9.3)
Sodium 134 L mmol/L
(135-145)
Creatinine 0.5 L mg/dL
(0.6-1.0)
Glucose 111 H mg/dl
(70-99)
Alkaline Phosphatase 151 H U/L
(38-126)
Total Protein 6.2 L g/dl
(6.3-8.2)
03/13/24 06:52
03/13/24 06:52
Vital Signs
Initial and Last Documented VS:
Initial Vital Signs
BP
168/72
03/13/24 06:39
Last Documented Vital Signs
Temp Pulse Resp BP Pulse Ox
97.9 F 84 18 139/78 94
03/13/24 06:42 03/13/24 06:42 03/13/24 06:42 03/13/24 09:00 03/13/24 08:45
Geofflt;Doroteo Domingo DO, Resident - Last Filed: 03/13/24 10:57>
MDM/Problems Addressed
Differential Diagnosis Includes:
Partial small bowel obstruction, sinus infection, gastroparesis, constipation, pancreatitis
MDM/Problems Addressed:
78-year-old female past medical history breast cancer status post lumpectomy and radiation, paroxysmal atrial fibrillation, on Eliquis, hypothyroidism, Crohn's, multiple abdominal surgeries, rectum resection with ostomy, hernia repair x 2 presents
for 1 day of severe nausea with no vomiting. Of note patient is also endorsing 1 day of symptoms concerning for sinus infection, congestion, cough, runny nose. Denies fever, denies chills.
Patient reports she has not been eating or drinking much lately, she also reports constipation recently, last bowel movement was Wednesday. She notes decreased output of her ostomy, has passed small amount of flatus in the last 24 hours
Patient reports she had a bowel obstruction in the past, she states this does not feel the same, but similar
Abdomen distended on exam, tympanic, nontender to deep and light palpation. There is an ostomy present left lower quadrant. No rebound or guarding present on exam.
In ED patient afebrile, hypertensive, other vitals within normal limits
Hemoglobin and white count within normal limits, mild hyponatremia 134 and elevated alk phos of 151, lipase within normal limits
Received dose of Zofran in ED, patient reports nausea has resolved with Zofran
Suspicious for partial small bowel obstruction, will order obstruction series radiograph
Obstruction series radiograph demonstrated nonobstructive bowel gas pattern, no free air.
Of note patient has a past medical history of paroxysmal atrial fibrillation on Eliquis. Heart rate sounds irregular on exam, patient reports not taking her Eliquis today or yesterday
EKG ordered, never completed by nursing.
Patient reports not eating or drinking much lately, order 1 L normal saline bolus
Initiate oral azithromycin, will prescribe Z-Haider 500 mg for an additional 3 days at discharge
Encourage generous p.o. intake, encouraged use of [id number] constipation medications as needed. Encourage follow-up with primary care provider
Chronic conditions affecting care: Previous abdomnial surgery
Acute Exacerbation and/or Progression of Chronic Illness: Previous abdomnial surgery
<Doroteo Domingo DO, Resident - Last Filed: 03/13/24 10:57>
*Critical Care Note
Total Time (30-74mins, 75-104mins- exclusive of procedures): Not Applicable
ED Attending Note
<Doroteo Domingo DO, Resident - Last Filed: 03/13/24 10:57>
-
Portions of this chart may have been created with voice recognition software.� Occasional wrong word or��sound alike� substitutions may have occurred due to the inherent limitations of voice recognition software.
<Todd Jackson DO - Last Filed: 03/13/24 08:59>
ED Attending Note
Patient seen and examined by attending physician: Yes
I performed a history and physical exam of patient and discussed management with resident, I reviewed resident's note and agree with documented findings and plan of care.: Yes
ED Attending Note:
Seen with resident examined independently 78-year-old female prior abdominal surgery parastomal hernia presents with sinus congestion postnasal drip and nausea feeling better after Zofran from EMS, she has a hard stool in her ostomy, no abdominal
pain, states she feels congested in her sinuses, labs are noted, will check obstruction series though I do not believe she is obstructed start on short course of antibiotics and steroids
Discharge Plan
Departure
Patient Disposition: Home (Routine Discharge)
Date of Disposition: 03/13/24
Time of Disposition: 10:25
Patient with high blood pressure during this ER visit?: Yes
Condition: Good
Discharge Problem:
Sinusitis, acute
Instructions: Nausea and Vomiting, Adult (DC), BLOOD PRESSURE
Prescriptions:
New
azithromycin [Zithromax TRI-HAIDER] 500 mg tablet
500 mg PO DAILY 3 Days Qty: 3 0RF
No Action
levothyroxine 150 MCG tablet
150 mcg PO DAILY
multivitamin [Multi-Day] 1 EACH tablet
1 tab PO DAILY
atorvastatin 10 MG tablet
10 mg PO HS Qty: 30 3RF
Eliquis 5 MG tablet
5 mg PO BID Qty: 60 0RF
celecoxib 200 mg Capsule
200 mg PO BID
esomeprazole magnesium 20 mg Capsule,Delayed Release(Dr/Ec)
20 mg PO BID
metoprolol succinate 25 MG tablet extended release 24 hr
50 mg PO DAILY
letrozole 2.5 mg Tablet
2.5 mg PO DAILY
Patient Comments:
Patient unsure of dose but states that she takes it once daily
aspirin 81 mg Tablet
81 mg PO DAILY
albuterol 90 mcg/actuation Aerosol
90 mcg INHALATION PRN PRN (Reason: wheezing)
Trelegy Ellipta 100-62.5-25 mcg Blister With Device
1 inh INHALATION DAILY
Referrals:
Jairo Lopez MD [Family Provider] - Call in 1-3 days for appt
Activity Restrictions/Additional Instructions:
Please follow-up with your primary care physician, call in 1 to 3 days for an appointment
Please take Z-Haider, azithromycin 500 mg daily for 3 days
Please drink plenty of fluids by mouth. Please use [id number] oral constipation medications as needed for constipation
Please return to the emergency department if you notice abdominal distention, decreased ostomy output, elevated fever or with any concerns.
Interventions
Interventions:
*Risk Screen - Suicide Last Done: 03/13/24 06:42
*General Assessment Last Done: 03/13/24 06:42
*Neglect/Abuse Screening Last Done: 03/13/24 06:42
*ED COVID-19 Vaccine History Last Done: 03/13/24 06:42
*Nursing Disposition Last Done: 03/13/24 10:46
ZU-Ibeccr-Poicsgnejr Assessment Last Done: 03/13/24 08:30
Discharge Date and Time
Discharge Date/Time: 03/13/24 10:47
Print Language: RWANDAN
[2024-03-13 08:00] VITALS: BP 115/43
[2024-03-13] MEDS: NSS 1000 IV (08:31)
--- NOTE | 2024-03-13 08:59 | EDRN ---
@0830 RN questioned why pt needed an abd ct scan with contrast to resident juliano, who responded 'do i need to explain myself to you?' RN stated that resident did need to explain his reasoning as to why he ordered a scan on a pt with nausea and
sinus infection. Dr. Jackson heard discussion and stated he would go in to see pt. and hold on the contrast until he evaluated pt. Dr. Jackson say pt. and canceled ct scan and ordered a x-ray as pt has a history and just wants to be sure there is
nothing going on. To cancel oral contrast dye.
[2024-03-13 09:00] VITALS: BP 139/78
[2024-03-13] MEDS: ZITHROMAX 500 MG PO (09:11)
== END 2024-03-13 10:47 | disposition home or self-care (01) ==
LOC: EMR 06:35
PROVIDERS: EMERGENCY PHYSICIAN Emergency Medicine; FAMILY PHYSICIAN Family Medicine
DX: J01.90 Acute sinusitis, unspecified (principal); R10.9 Unspecified abdominal pain; R11.0 Nausea; K59.00 Constipation, unspecified; Z11.52 Encounter for screening for COVID-19; R03.0 Elevated blood-pressure reading, without diagnosis of hypertension; I48.0 Paroxysmal atrial fibrillation; K50.10 Crohn's disease of large intestine without complications; E78.00 Pure hypercholesterolemia, unspecified; E89.0 Postprocedural hypothyroidism; Z93.3 Colostomy status; Z79.01 Long term (current) use of anticoagulants; Z85.3 Personal history of malignant neoplasm of breast; Z92.3 Personal history of irradiation; Z87.891 Personal history of nicotine dependence; Z98.0 Intestinal bypass and anastomosis status; Z88.1 Allergy status to other antibiotic agents; Z88.0 Allergy status to penicillin
CPT/HCPCS: 99284; 96360; 74022; 80053; 83690; 85025; 87502; 87811

== ENCOUNTER → 2024-06-14 15:10 | Outpatient (REF) | payer OTHER, SELFPAY | LOC: RAD 15:10 | PROVIDERS: ATTENDING PHYSICIAN Physician Assistant Medical | DX: J20.9 Acute bronchitis, unspecified (principal); R05.1 Acute cough | CPT/HCPCS: 71046 ==

== ENCOUNTER → 2025-01-18 10:41 | Outpatient (REF) | payer OTHER, SELFPAY | LOC: RAD 10:41 | PROVIDERS: ATTENDING PHYSICIAN Physician Assistant Medical | DX: M25.562 Pain in left knee (principal); R60.0 Localized edema | CPT/HCPCS: 93971 ==